=== PATIENT | male | born 1965 | race African-American/Black ===

== ENCOUNTER 2019-02-05 18:13 | Emergency (ER) | payer BC, OTHER ==
[~2019-02-05] VITALS: Ht 172.7 cm; Wt 70.8 kg
--- OUTSIDE RECORDS SUMMARY | 2019-02-05 18:18 | XMS REPORT ---
Author Author LEYDI ZAYAS Organization [facility] [address] Address [address] [place] [address] Care Team Providers Care Linux Unix System Administrator Name Role Phone LEYDI ZAYAS Unavailable PROBLEMS Unknown Problems ALLERGIES Substance Reaction Event Type Date Status Penicillin V Potassium Unknown Drug Allergy May, Active ENCOUNTERS Encounter Location Date Diagnosis [facility] [address] [place] [phone] May, Dental examination Z01.20 [facility] [address] [place] [phone] Apr, [address] [address] Sep, Dental examination Z01.[address] [address] Sep, [address] [address] May, Dental examination V72.2 IMMUNIZATIONS No Known Immunizations SOCIAL HISTORY Never Assessed REASON FOR VISIT ASHTYN PLAN OF CARE Activity Details Follow Up prn Reason:MARILUZ/Prophy VITAL SIGNS Blood pressure systolic 166 mmHg 2018-05-23 Blood pressure diastolic 99 mmHg 2018-05-23 MEDICATIONS Medication Instructions Dosage Frequency Start Date End Date Duration Status Magic Mouthwash Apply medicated swab to sore areas of the mouth to numb the pain As needed Dip cotton swab into medication Sep, As needed Not-Taking ProAir HFA Active Clindamycin HCl 300 MG Orally every 6 hrs 1 capsule 6h 10 days Active [place] 7.5-325 MG Orally every 6 hrs 1 tablet as needed 6h May, Active Clindamycin HCl 150 MG Orally every 6 hrs 2 capsules 6h May, 10 day(s) Not-Taking Hydrochlorothiazide Active RESULTS No Results PROCEDURES Procedure Date Ordered Result Body Site LTD ORAL EVALUATION - PROBLEM FOCUS May 23, 2018 INTRAORL-PERIAPICAL 1 FILM [id number] May 23, 2018 Billing Notes on claim May 23, 2018 EXTRAC ERUPTED TOOTH/EXPOSED ROOT May 23, 2018 INTRAORL-PERIAPICAL EA ADD FILM May 23, 2018 SURG REMOVAL ERUPTED TOOTH May 23, 2018 SURG REMOVAL ERUPTED TOOTH May 23, 2018 INSTRUCTIONS MEDICATIONS ADMINISTERED No Known Medications MEDICAL (GENERAL) HISTORY Type Description Date Medical History HBP Medical History Asthma Medical History Migraines
--- OUTSIDE RECORDS SUMMARY | 2019-02-05 18:18 | XMS REPORT ---
Author Author LEYDI ZAYAS Organization [facility] Address [address] [place] [address] Care Team Providers Care Sifter And Miller Name Role Phone ZAYASLEYDI SWEEENY Unavailable PROBLEMS Unknown Problems ALLERGIES Substance Reaction Event Type Date Status Penicillin V Potassium Unknown Drug Allergy Sep, Active ENCOUNTERS Encounter Location Date Diagnosis [facility] [address] [facility] [address] [id number] [place] [phone] Sep, Dental examination Z01.20 [facility] [address] [facility] [address] [id number] [place] [phone] Sep, [facility] [address] [facility] [address] [id number] [place] [phone] May, Dental examination V72.2 IMMUNIZATIONS No Known Immunizations SOCIAL HISTORY Never Assessed REASON FOR VISIT ASHTYN PLAN OF CARE Activity Details Follow Up prn Reason:MARILUZ/Prophy VITAL SIGNS Blood pressure systolic 133 mmHg 2017-10-11 Blood pressure diastolic 89 mmHg 2017-10-11 MEDICATIONS Medication Instructions Dosage Frequency Start Date End Date Duration Status Magic Mouthwash Apply medicated swab to sore areas of the mouth to numb the pain As needed Dip cotton swab into medication Sep, As needed Active Clindamycin HCl 300 MG Orally every 6 hrs 1 capsule 6h 10 days Active RESULTS No Results PROCEDURES Procedure Date Ordered Result Body Site LTD ORAL EVALUATION - PROBLEM FOCUS Oct 11, 2017 INTRAORL-PERIAPICAL 1 FILM [id number] Oct 11, 2017 EXTRAC ERUPTED TOOTH/EXPOSED ROOT Oct 11, 2017 PANORAMIC FILM SEE ALSO CODE [id number] Oct 11, 2017 INSTRUCTIONS MEDICATIONS ADMINISTERED No Known Medications MEDICAL (GENERAL) HISTORY Type Description Date Medical History HBP
--- OUTSIDE RECORDS SUMMARY | 2019-02-05 18:18 | XMS REPORT ---
Author Author LEYDI ZAYAS [facility] Address [address] [place] [address] Care Team Providers Care Head Of Sales Name Role Phone LEYDI ZAYAS Unavailable PROBLEMS Unknown Problems ALLERGIES No Information ENCOUNTERS Encounter Location Date Diagnosis [facility] [address] [place] [address] C [id number] [place] [phone] Sep, Dental examination Z01.20 [facility] [address] [place] [address] C [id number] [place] [phone] Sep, [address] [id number] [place] [phone] May, Dental examination V72.2 IMMUNIZATIONS No Known Immunizations SOCIAL HISTORY Never Assessed REASON FOR VISIT PLAN OF CARE VITAL SIGNS MEDICATIONS Medication Instructions Dosage Frequency Start Date End Date Duration Status Magic Mouthwash Apply medicated swab to sore areas of the mouth to numb the pain As needed Dip cotton swab into medication Sep, As needed Active Clindamycin HCl 300 MG Orally every 6 hrs 1 capsule 6h 10 days Active RESULTS No Results PROCEDURES No Known procedures INSTRUCTIONS MEDICATIONS ADMINISTERED No Known Medications MEDICAL (GENERAL) HISTORY Type Description Date Medical History HBP
--- OUTSIDE RECORDS SUMMARY | 2019-02-05 18:18 | XMS REPORT ---
Author Author LEYDI ZAYAS Organization [facility] [address] Address [address] [place] [address] Care Team Providers Care Plunket Nurse Name Role Phone LEYDI ZAYAS Unavailable PROBLEMS Unknown Problems ALLERGIES No Information ENCOUNTERS Encounter Location Date Diagnosis [facility] [address] [place] [address] May, Dental examination Z01.20 [facility] [address] [place] [phone] Apr, [address] [address] Sep, Dental examination Z01.[address] [address] Sep, [address] [address] May, Dental examination V72.2 IMMUNIZATIONS No Known Immunizations SOCIAL HISTORY Never Assessed REASON FOR VISIT PLAN OF CARE VITAL SIGNS MEDICATIONS Medication Instructions Dosage Frequency Start Date End Date Duration Status Clindamycin HCl 150 MG Orally every 6 hrs 2 capsules 6h May, 10 day(s) Active RESULTS No Results PROCEDURES No Known procedures INSTRUCTIONS MEDICATIONS ADMINISTERED No Known Medications MEDICAL (GENERAL) HISTORY Type Description Date Medical History HBP Medical History Asthma Medical History Migraines
--- OUTSIDE RECORDS SUMMARY | 2019-02-05 18:19 | XMS REPORT | Continuity of Care Document ---
Author Organization Unknown Address Unknown Allergies There is no data. Medications There is no data. Problems Date Dx Coded Attending Type Code Diagnosis Diagnosed By 11/03/2014 ADAN HERNANDEZ MD (DDU) Ot 401.9 11/03/2014 ADAN HERNANDEZ MD (GEETHA) Ot 492.8 11/03/2014 ADAN HERNANDEZ MD (GEETHA) Ot 493.90 11/03/2014 ADAN HERNANDEZ MD (GEETHA) Ot 722.52 Procedures There is no data. Results There is no data. Encounters ACCT No. Visit Date/Time Discharge Status Pt. Type Provider Facility Loc./Unit Complaint [id number] 02/05/2019 16:00:00 ACT Outpatient [facility] [id number] 10/29/2014 12:47:00 10/29/2014 23:59:59 CLS Outpatient ADAN HERNANDEZ MD (DDU) [facility] RAD [id number] 02/05/2019 18:15:00 ACT Emergency MOSHE GUTIÉRREZ MD [facility] ER FS ASTHMA RELATED RESTRICTED BREATHING
[2019-02-05] MEDS ORDERED: RT-ALBUTEROL/IPRATROPIUM 3 ML (DUONEB) VIAL ONE (18:23)
[2019-02-05] MEDS ORDERED: RT-ALBUTEROL/IPRATROPIUM 3 ML (DUONEB) VIAL INH ONE (18:30)
--- NOTE | 2019-02-05 18:44 | ED Respiratory ---
General Chief Complaint: Respiratory Problems Stated Complaint: ASTHMA RELATED RESTRICTED BREATHING Nursing Triage Note: went to urgent care an hour ago for asthma and got a breathing treatment. Breathing is not getting better so came to ED for eval. Is short of breath at rest. Source: patient, family History of Present Illness Date Seen by Provider: Feb 05, 2019 Time Seen by Provider: 18:20 Initial Comments 54-year-old male presenting with increased shortness of breath and wheezing. He has a history of asthma but due to changes in the clinic management recently he has not gotten in with a new provider yet. He has not had any Flovent for almost a month. He has been using per where her albuterol inhaler 4-5 times a day here recently. He has been outside a lot recently and there has been a lot of pollen and increased allergens in the air. He has been to urgent care this evening and had a breathing treatment. From there the also gave him a prescription for steroids and the Flovent. He had picked that up from the pharmacy and then went home. However his breathing, worse again and so he came to the emergency department. Here he was having difficulty breathing and very short of breath with speaking only a couple word sentences. He denies having any fever or chills. He has not been feeling ill. He feels that this is similar to his flareups of asthma but he has had in the past. Timing/Duration: other (last few days but worsening) Severity: moderate (moderate to severe) Prior Episodes/Possible Cause: allergen exposure Modifying Factors: Worse With Activity; Improves With Albuterol Inhaler, Improves With Albuterol Nebulizer Associated Symptoms: No chest pain/soreness; cough; No dizziness, No earache, No facial pain, No fever/chills, No headache, No nasal congestion, No nasal drainage; shortness of breath; No sinus infection, No sore throat; wheezing Allergies and Home Medications Allergies Coded Allergies: Penicillins (Verified Allergy, Unknown, 02/05/19) shellfish derived (Verified Allergy, Unknown, 02/05/19) Patient Home Medication List Home Medication List Reviewed: Yes Review of Systems Review of Systems Constitutional: see HPI; No diaphoresis EENTM: No ear discharge, No ear pain, No hoarseness, No epistaxis, No nose congestion, No throat pain Respiratory: see HPI, cough; No hemoptysis; short of breath; No stridor; wheezing Cardiovascular: No chest pain Gastrointestinal: no symptoms reported Genitourinary: no symptoms reported Musculoskeletal: no symptoms reported Skin: no symptoms reported Past Axyvpxr-Uksgdi-Jysqgs Hx Past Med/Social Hx: Reviewed Nursing Past Med/Soc Hx Patient Social History Recent Foreign Travel: No Contact w/Someone Who Travel: No Recent Infectious Disease Expo: No Seasonal Allergies Seasonal Allergies: Yes Past Medical History Respiratory: Yes Asthma Physical Exam Vital Signs - First Documented 02/05/19 02/05/19 18:21 20:19 Temp 96.6 Pulse 95 Resp 22 B/P (MAP) 165/95 (118) Pulse Ox 95 O2 Delivery Room Air Capillary Refill : Less Than 3 Seconds Height: 5'8.00" Weight: 156lbs. oz. 70.987912dn; BMI Method:Stated General Appearance: WD/WN, moderate distress (working hard to breath) HEENT: PERRL/EOMI, pharynx normal Neck: non-tender, full range of motion, supple, normal inspection Respiratory: chest non-tender, no respiratory distress, decreased breath sounds ; No rales, No rhonchi, No stridor; wheezing Cardiovascular: normal peripheral pulses, regular rate, rhythm Gastrointestinal: normal bowel sounds, non tender, soft Neurologic/Psychiatric: alert, normal mood/affect, oriented x 3 Skin: normal color, warm/dry Progress/Results/Core Measures Suspected Sepsis Recent Fever Within 48 Hours: No Infection Criteria Present: None New/Unexplained Altered Menta: No Sepsis Screen: No Definite Risk SIRS Temperature:96.6 Pulse: 95 Respiratory Rate: 22 Blood Pressure 165 /95 Mean: 118 Results/Orders My Orders Orders - MOSHE GUTIÉRREZ MD Albuterol/Ipra Inhalation Soln (Duoneb I (02/05/19 18:30) Svn Small Volume Nebulizer (02/05/19 18:25) Albuterol/Ipra Inhalation Soln (Duoneb I (02/05/19 18:23) Dexamethasone Injection (Decadron Inject (02/05/19 18:45) Methylprednisolone Acetate Inj (Depo-Med (02/05/19 18:45) Chest Pa/Lat (2 View) (02/05/19 18:37) Medications Given in ED Current Medications Medications Dose Ordered Sig/Doug Route Start Time Stop Time Status Last Admin Dose Admin Albuterol/ Ipratropium 3 ml ONCE ONCE INH 02/05/19 18:30 02/05/19 18:31 DC 02/05/19 18:28 3 ML Dexamethasone Sodium Phosphate 10 mg ONCE ONCE IM 02/05/19 18:45 02/05/19 18:46 DC 02/05/19 18:51 10 MG Methylprednisolone Acetate 80 mg ONCE ONCE IM 02/05/19 18:45 02/05/19 18:46 DC 02/05/19 18:51 80 MG Vital Signs/I&O 02/05/19 02/05/19 18:21 20:19 Temp 96.6 97.6 Pulse 95 89 Resp 22 16 B/P (MAP) 165/95 (118) 148/97 (114) Pulse Ox 95 96 O2 Delivery Room Air Capillary Refill : Less Than 3 Seconds Blood Pressure Mean: 118 Progress Note #1: Time: 18:25 Progress Note give breathing treatment with duoneb and obtain CXR. Add in steroids with dexamethasone 10 mg IM and depo-medrol 80 mg IM. Will see how he is responding to this in the ED but he may need additional treatments or if he worsens or is not improving he may even need admit. Progress Note #2: Time: 19:45 Progress Note On recheck he is improved and airways are staying opened. Will discharge to home on meds he has prescribed already. Counseled on follow up and return precautions. Diagnostic Imaging Diagonstic Imaging: Xray Plain Films/CT/US/NM/MRI: chest Comments NAME: [facility] REC#: [id number] PT STATUS: REG ER : 1965 PHYSICIAN: MOSHE GUTIÉRREZ MD ADMIT DATE: 02/05/19/ER FS Signed Date of Exam:02/05/19 CHEST PA/LAT (2 VIEW) INDICATION: Wheezing and shortness of breath. PA and lateral views of the chest were obtained. FINDINGS: The heart size, mediastinal configuration, and pulmonary vascularity are within normal limits. There is no pleural effusion, pneumothorax, or pneumonia. The osseous structures are unremarkable. IMPRESSION: No acute cardiopulmonary abnormality. Dictated by: Dictated on workstation # [id number] Dict: 02/05/191901 Trans: 02/05/191911 [id number] Interpreted by: HAKEEM LIRIANO MD Electronically signed by: HAKEEM LIRIANO MD 02/05/191911 Reviewed: Reviewed by Me (and reviewed radiology reading) Departure Impression Primary Impression: Asthma with acute exacerbation in adult Qualified Codes: J45.41 - Moderate persistent asthma with (acute) exacerbation Disposition: 01 HOME, SELF-CARE Condition: Improved Departure-Patient Inst. Decision time for Depature: 20:08 Referrals: DALE CUEVA MD Patient Instructions: Asthma, Adult (DC), Rescue vs Controller Inhalers, Inhaled Corticosteroid Medicines Add. Discharge Instructions: Continue on your inhalers at home. Follow up with Dr. Cueva or provider in clinic within the next week Return or be seen sooner if you have worsening symptoms or not improving in the next 2-3 days All discharge instructions reviewed with patient and/or family. Voiced understanding. MOSHE GUTIÉRREZ MD Feb 05, 2019 18:44
[2019-02-05] MEDS ORDERED: DEXAMETHASONE 10 MG/ML (DECADRON) 1 ML VIAL IM ONE (18:45)
[2019-02-05] MEDS ORDERED: methylPREDNISolone 80 MG/ML (DEPO MEDROL) VIAL IM ONE (18:45)
--- NOTE | 2019-02-05 19:04 | Diagnostic Imaging Report ---
INDICATION: Wheezing and shortness of breath. PA and lateral views of the chest were obtained. FINDINGS: The heart size, mediastinal configuration, and pulmonary vascularity are within normal limits. There is no pleural effusion, pneumothorax, or pneumonia. The osseous structures are unremarkable. IMPRESSION: No acute cardiopulmonary abnormality. Dictated by: Dictated on workstation # [id number]
--- NOTE | 2019-02-05 19:51 | NUR ---
PT. REPORTED HE WAS BREATHING A LOT EASIER AND IS ANXIOUS TO GO HOME.
[2019-02-05 20:19] VITALS: BP 148/97
== END 2019-02-05 20:15 | disposition home or self-care (01) ==
LOC: EDUNIT# 18:13 → ER FS 18:15
DX: J45.901 Unspecified asthma with (acute) exacerbation (principal); Z88.0 Allergy status to penicillin
CPT/HCPCS: 71046

== ENCOUNTER 2019-12-06 17:01 | Emergency (ER) | payer BC ==
[~2019-12-06] VITALS: Ht 170 cm; Wt 68.1 kg
[2019-12-06 17:20] VITALS: BP 124/81
--- NOTE | 2019-12-06 17:20 | NUR ---
Brought to ED 6 per Nurses Tech and placed in ED 06. Pt hx obtained. Pt made aware of busy ER and Dr will be made aware he is in room and also in could be awhile till he can assess him as he is busy with an emergency needing transfered.
--- NOTE | 2019-12-06 18:00 | NUR ---
Pt walks past staff in hallway and nurses station and calling out loud in shaw "I am leaving to go to a real hospital where a Dr will come and see me." Dr De La Torre enters hallway and patient made aware he is next but pt decides to not stop, not sign out left without being seen. Refused when approached.
== END 2019-12-06 18:00 | disposition left against medical advice (07) ==
LOC: EDUNIT# 17:01 → ER FS 17:02
DX: M79.601 Pain in right arm (principal)

== ENCOUNTER 2019-12-31 10:11 | Emergency (ER) | payer BC ==
[~2019-12-31] VITALS: Ht 172 cm; Wt 70.7 kg
[2019-12-31] MEDS ORDERED: LACTATED RINGERS 1,000 ML IV STA (10:41)
[2019-12-31] MEDS ORDERED: ONDANSETRON 4 MG/2 ML (SDV) Z0FRAN IVP ONE (10:45)
--- NOTE | 2019-12-31 10:48 | ED General ---
General Chief Complaint: Dizziness/Syncope Stated Complaint: N/V;FAINTING Nursing Triage Note: PT COMPLAINS OF DIZZINESS, SYNCOPE, N/V/D STARTING YESTERDAY. Nursing Sepsis Screen: No Definite Risk Source of Information: Patient Exam Limitations: No Limitations History of Present Illness Date Seen by Provider: Dec 31, 2019 Time Seen by Provider: 10:31 Initial Comments Here with report of 2 episodes of syncope including one last night which she wanted to the bathroom to vomit and apparently passed out. Denies injury from that episode. Also had an episode this morning associated with vomiting. States that he is vomiting clear yellow liquid. Denies blood. Denies chest pain. Does have mild intermittent cough. Denies breathing problems but does have history of asthma. Reports chills but unsure about fevers. Timing/Duration: 12-24 Hours Severity: Moderate Associated Systoms: No Chest Pain; Cough, Fever/Chills; No Headaches; Nausea/Vomiting; No Shortness of Air; Syncope, Weakness Allergies and Home Medications Allergies Coded Allergies: Penicillins (Verified Allergy, Unknown, 02/05/19) shellfish derived (Verified Allergy, Unknown, 02/05/19) Patient Home Medication List Home Medication List Reviewed: Yes Review of Systems Review of Systems Constitutional: see HPI, chills; No fever EENTM: no symptoms reported Respiratory: cough; No short of breath Cardiovascular: no symptoms reported Gastrointestinal: abdominal pain, nausea, vomiting Genitourinary: no symptoms reported Musculoskeletal: no symptoms reported Skin: no symptoms reported Psychiatric/Neurological: See HPI; Denies Headache, Denies Seizure Hematologic/Lymphatic: No Symptoms Reported All Other Systems Reviewed Negative Unless Noted: Yes Past Hagdgwa-Ywbpnz-Tznhvw Hx Past Med/Social Hx: Reviewed Nursing Past Med/Soc Hx Patient Social History Alcohol Use: Occasionally Uses Alcohol Beverage of Choice: Beer, Other Recreational Drug Use: No Smoking Status: Current Someday Smoker Type Used: Cigarettes 2nd Hand Smoke Exposure: No Recent Foreign Travel: No Contact w/Someone Who Travel: No Recent Infectious Disease Expo: No Recent Hopitalizations: No Seasonal Allergies Seasonal Allergies: Yes Past Medical History Surgeries: Yes (R middle finger/amputation, R ankle) Orthopedic Respiratory: Yes Asthma Cardiac: Yes Hypertension Neurological: Yes Headaches /Migraines Genitourinary: No Gastrointestinal: No Musculoskeletal: No Endocrine: No HEENT: No Cancer: No Psychosocial: No Blood Disorders: No Family Medical History Reviewed Nursing Family Hx Physical Exam Vital Signs Vital Signs - First Documented 12/31/19 10:15 Temp 36.9 Pulse 111 Resp 16 B/P (MAP) 142/110 (121) Pulse Ox 97 O2 Delivery Room Air Capillary Refill : Less Than 3 Seconds Height, Weight, BMI Height: 5'8.00" Weight: 156lbs. oz. 70.183787hi; 23.00 BMI Method:Stated General Appearance: No Apparent Distress, WD/WN HEENT: PERRL/EOMI, TMs Normal, Pharynx Normal Neck: Non Tender, Supple Respiratory: No Accessory Muscle Use, No Respiratory Distress, Expiration, Wheezing Cardiovascular: No Murmur, Tachycardia Gastrointestinal: Non Tender, Soft Back: Normal Inspection, No CVA Tenderness, No Vertebral Tenderness Extremity: Normal Range of Motion, Non Tender Neurologic/Psychiatric: Alert, Oriented x3 Skin: Normal Color, Warm/Dry Progress/Results/Core Measures Suspected Sepsis Recent Fever Within 48 Hours: No Infection Criteria Present: Suspected New Infection New/Unexplained Altered Menta: No Sepsis Screen: No Definite Risk SIRS Temperature: Pulse: 111 Respiratory Rate: 16 Laboratory Tests 12/31/19 10:30: White Blood Count 9.2 Blood Pressure 142 /110 Mean: 121 Laboratory Tests 12/31/19 10:30: Creatinine 1.01, Platelet Count 210, Total Bilirubin 0.6 Results/Orders Lab Results Laboratory Tests Test 12/31/19 10:30 12/31/19 11:28 Range/Units White Blood Count 9.2 4.3-11.0 10^3/uL Red Blood Count 3.48 L 4.35-5.85 10^6/uL Hemoglobin 11.0 L 13.3-17.7 G/DL Hematocrit 33 L 40-54 % Mean Corpuscular Volume 93 80-99 FL Mean Corpuscular Hemoglobin 32 25-34 PG Mean Corpuscular Hemoglobin Concent 34 32-36 G/DL Red Cell Distribution Width 12.3 10.0-14.5 % Platelet Count 210 130-400 10^3/uL Mean Platelet Volume 10.8 H 7.4-10.4 FL Neutrophils (%) (Auto) 64 42-75 % Lymphocytes (%) (Auto) 16 12-44 % Monocytes (%) (Auto) 13 H 0-12 % Eosinophils (%) (Auto) 6 0-10 % Basophils (%) (Auto) 1 0-10 % Neutrophils # (Auto) 5.9 1.8-7.8 X 10^3 Lymphocytes # (Auto) 1.5 1.0-4.0 X 10^3 Monocytes # (Auto) 1.2 H 0.0-1.0 X 10^3 Eosinophils # (Auto) 0.6 H 0.0-0.3 10^3/uL Basophils # (Auto) 0.1 0.0-0.1 10^3/uL Sodium Level 136 135-145 MMOL/L Potassium Level 3.5 L 3.6-5.0 MMOL/L Chloride Level 96 L 98-107 MMOL/L Carbon Dioxide Level 32 21-32 MMOL/L Anion Gap 8 5-14 MMOL/L Blood Urea Nitrogen 24 H 7-18 MG/DL Creatinine 1.01 0.60-1.30 MG/DL Estimat Glomerular Filtration Rate > 60 BUN/Creatinine Ratio 24 Glucose Level 105 70-105 MG/DL Calcium Level 9.5 8.5-10.1 MG/DL Corrected Calcium 8.5-10.1 MG/DL Magnesium Level 1.9 1.6-2.4 MG/DL Total Bilirubin 0.6 0.1-1.0 MG/DL Aspartate Amino Transf (AST/SGOT) 28 5-34 U/L Alanine Aminotransferase (ALT/SGPT) 20 0-55 U/L Alkaline Phosphatase 52 40-136 U/L Troponin I < 0.028 <0.028 NG/ML C-Reactive Protein High Sensitivity 0.20 0.00-0.50 MG/DL Total Protein 7.3 6.4-8.2 GM/DL Albumin 4.6 H 3.2-4.5 GM/DL Urine Color YELLOW Urine Clarity CLEAR Urine pH 7.5 5-9 Urine Specific [place] 1.010 L 1.016-1.022 Urine Protein NEGATIVE NEGATIVE Urine Glucose (UA) NEGATIVE NEGATIVE Urine Ketones 1+ H NEGATIVE Urine Nitrite NEGATIVE NEGATIVE Urine Bilirubin NEGATIVE NEGATIVE Urine Urobilinogen 1.0 < = 1.0 MG/DL Urine Leukocyte Esterase NEGATIVE NEGATIVE Urine RBC (Auto) NEGATIVE NEGATIVE Urine RBC NONE /HPF Urine WBC RARE /HPF Urine Squamous Epithelial Cells NONE /HPF Urine Crystals NONE /LPF Urine Bacteria NEGATIVE /HPF Urine Casts NONE /LPF Urine Mucus NEGATIVE /LPF Urine Culture Indicated NO My Orders Orders - MARILIN,LIYA D MD Cbc With Automated Diff (12/31/19 10:41) Comprehensive Metabolic Panel (12/31/19 10:41) Hs C Reactive Protein (12/31/19 10:41) Magnesium (12/31/19 10:41) Troponin I (12/31/19 10:41) Ua Culture If Indicated (12/31/19 10:41) Chest 1 View, Ap/Pa Only (12/31/19 10:41) Ondansetron Injection (Zofran Injectio (12/31/19 10:45) Lactated Ringers (Lr 1000 Ml Iv Solution (12/31/19 10:41) Ed Iv/Invasive Line Start (12/31/19 10:41) Ct Head Wo (12/31/19 10:41) Medications Given in ED Current Medications Medications Dose Ordered Sig/Doug Route Start Time Stop Time Status Last Admin Dose Admin Ondansetron HCl 4 mg ONCE ONCE IVP 12/31/19 10:45 12/31/19 10:46 DC 12/31/19 10:50 4 MG Vital Signs/I&O 12/31/19 10:15 Temp 36.9 Pulse 111 Resp 16 B/P (MAP) 142/110 (121) Pulse Ox 97 O2 Delivery Room Air Capillary Refill : Less Than 3 Seconds Blood Pressure Mean: 121 Progress Note : Progress Note Seen and evaluated. IV, labs, EKG, chest x-ray and CT head ordered. LR 1 L bolus. Zofran 4 mg IV. Monitor patient. 1239: Tolerating by mouth fluids without difficulty and states he feels much better. We will initiate outpatient ondansetron. Discharged home with return precautions. Patient verbalize understanding instructions and agreement with plan. Family agrees. ECG Initial ECG Impression Date: Dec 31, 2019 Initial ECG Impression Time: 10:31 Initial ECG Rate: 108 Initial ECG Rhythm: S.Tach Comment Sinus tachycardia with left ventricular hypertrophy. EKG questions diffuse ST e levation in the inferior lateral leads. There is some wondering of the baseline although a consideration. No evidence of ST elevation FL. No previous available for comparison. Interpreted by me. Diagnostic Imaging Diagonstic Imaging: CT Plain Films/CT/US/NM/MRI: head Comments [facility] [place], [place] NAME: MARK WALL [facility] REC#: [id number] PT STATUS: REG ER : 1965 PHYSICIAN: LIYA GASTON MD ADMIT DATE: 12/31/19/ER Draft Date of Exam:12/31/19 CT HEAD WO PROCEDURE: CT head without contrast. TECHNIQUE: Multiple contiguous axial images were obtained through the brain without the use of intravenous contrast. Auto Exposure Controls were utilized during the CT exam to meet ALARA standards for radiation dose reduction. INDICATION: Syncope. COMPARISON: No prior studies are available for comparison. FINDINGS: The ventricles and sulci are within normal limits. No sulcal effacement or midline shift is identified. No acute intra-axial or extra-axial hemorrhage is detected. Cisterns are patent. Visualized paranasal sinuses are clear. IMPRESSION: No acute intracranial process is detected. Dictated on workstation # [id number] Dict: 12/31/19 1102 Trans: 12/31/19 1103 B [id number] Interpreted by: SILVINO HERNANDEZ MD Electronically signed by: Amirah Imaging: Xray Plain Films/CT/US/NM/MRI: chest Comments [facility], [place] NAME: MARK WALL [facility] REC#: [id number] PT STATUS: REG ER : 1965 PHYSICIAN: LIYA GASTON MD ADMIT DATE: 12/31/19/ER Draft Date of Exam:12/31/19 CHEST 1 VIEW, AP/PA ONLY INDICATION: Dizziness, syncope, nausea, vomiting and diarrhea starting one day earlier.. TECHNIQUE: Single view chest 11:08 AM. CORRELATION STUDY: 02/05/2019 FINDINGS: The heart size, mediastinal configuration and pulmonary vascularity are within normal limits. The lungs are clear with no consolidating infiltrate. There is no significant effusion or pneumothorax. Very mild rightward curvature or rotation lower thoracic spine. IMPRESSION: 1. Negative for acute abnormality of the chest. Dictated on workstation # [id number] Dict: 12/31/19 1109 Trans: 12/31/19 1110 DO [id number] Interpreted by: ISH AUGUST DO Electronically signed by: Departure Impression Primary Impression: Nausea and vomiting Qualified Codes: R11.2 - Nausea with vomiting, unspecified Additional Impression: Syncope Qualified Codes: R55 - Syncope and collapse Disposition: 01 HOME, SELF-CARE Condition: Improved Departure-Patient Inst. Decision time for Depature: 12:40 Referrals: DALE RAMOS MD (PCP/Family) Primary Care Physician Patient Instructions: Nausea and Vomiting, Adult (DC), Syncope (Fainting) (DC) Add. Discharge Instructions: All discharge instructions reviewed with patient and/or family. Voiced understanding. Take medications as directed. Follow-up with your Dr. in one to 2 days for recheck and further evaluation as needed. Return for worse pain, fever, vomiting, weakness, breathing problems, passing out or other concerns as needed. Clear liquid diet for the next 24 hours and then advance as tolerated. Start with small sips frequently and then advance from there. Scripts Ondansetron (Ondansetron Odt) 4 Mg Tab.rapdis 4 MG PO Q6H PRN for NAUSEA/VOMITING, #8 TAB 0 Refills Prov: LIYA GASTON MD 12/31/19 LIYA GASTON MD Dec 31, 2019 10:48
[2019-12-31 10:50] LABS: BASOPHILS # (AUTO) 0.1 10^3/uL (0.0-0.1); BASOPHILS % (AUTO) 1 % (0-10); EOSINOPHILS # (AUTO) 0.6 10^3/uL (0.0-0.3); EOSINOPHILS % (AUTO) 6 % (0-10); HEMATOCRIT 33 % (40-54); LYMPHOCYTES # (AUTO) 1.5 X 10^3 (1.0-4.0); LYMPHOCYTES % (AUTO) 16 % (12-44); MEAN CORPUSCULAR HEMOGLOBIN 32 PG (25-34); MEAN CORPUSCULAR HGB CONC 34 G/DL (32-36); MEAN CORPUSCULAR VOLUME 93 FL (80-99); MEAN PLATELET VOLUME 10.8 FL (7.4-10.4); MONOCYTES # (AUTO) 1.2 X 10^3 (0.0-1.0); MONOCYTES % (AUTO) 13 % (0-12); NEUTROPHILS # (AUTO) 5.9 X 10^3 (1.8-7.8); NEUTROPHILS % (AUTO) 64 % (42-75); PLATELET COUNT 210 10^3/uL (130-400); RED CELL DISTRIBUTION WIDTH 12.3 % (10.0-14.5); WHITE BLOOD COUNT 9.2 10^3/uL (4.3-11.0)
[2019-12-31 11:02] LABS: ALANINE AMINOTRANSFERASE 20 U/L (0-55); ALBUMIN 4.6 GM/DL (3.2-4.5); ALKALINE PHOSPHATASE 52 U/L (40-136); BILIRUBIN,TOTAL 0.6 MG/DL (0.1-1.0); BUN/CREATININE RATIO 24; CALCIUM 9.5 MG/DL (8.5-10.1); CARBON DIOXIDE 32 MMOL/L (21-32); CHLORIDE 96 MMOL/L (98-107); CREATININE SERUM 1.01 MG/DL (0.60-1.30); GFR ESTIMATED > 60; GLUCOSE 105 MG/DL (70-105); MAGNESIUM 1.9 MG/DL (1.6-2.4); POTASSIUM 3.5 MMOL/L (3.6-5.0); SODIUM 136 MMOL/L (135-145); TOTAL PROTEIN 7.3 GM/DL (6.4-8.2)
--- NOTE | 2019-12-31 11:03 | Diagnostic Imaging Report ---
PROCEDURE: CT head without contrast. TECHNIQUE: Multiple contiguous axial images were obtained through the brain without the use of intravenous contrast. Auto Exposure Controls were utilized during the CT exam to meet ALARA standards for radiation dose reduction. INDICATION: Syncope. COMPARISON: No prior studies are available for comparison. FINDINGS: The ventricles and sulci are within normal limits. No sulcal effacement or midline shift is identified. No acute intra-axial or extra-axial hemorrhage is detected. Cisterns are patent. Visualized paranasal sinuses are clear. IMPRESSION: No acute intracranial process is detected. Dictated by: Dictated on workstation # [id number]
--- NOTE | 2019-12-31 11:10 | Diagnostic Imaging Report ---
INDICATION: Dizziness, syncope, nausea, vomiting and diarrhea starting one day earlier.. TECHNIQUE: Single view chest 11:08 AM. CORRELATION STUDY: 02/05/2019 FINDINGS: The heart size, mediastinal configuration and pulmonary vascularity are within normal limits. The lungs are clear with no consolidating infiltrate. There is no significant effusion or pneumothorax. Very mild rightward curvature or rotation lower thoracic spine. IMPRESSION: 1. Negative for acute abnormality of the chest. Dictated by: Dictated on workstation # [id number]
[2019-12-31 11:32] LABS: BILIRUBIN,URINE NEGATIVE (NEGATIVE); CLARITY,URINE CLEAR; COLOR,URINE YELLOW; GLUCOSE, URINE (UA) NEGATIVE (NEGATIVE); KETONES,URINE 1+ (NEGATIVE); LEUKOCYTE ESTERASE ,URINE NEGATIVE (NEGATIVE); NITRITE,URINE NEGATIVE (NEGATIVE); PH,URINE 7.5 (5-9); PROTEIN,URINE NEGATIVE (NEGATIVE)
[2019-12-31 11:49] LABS: BACTERIA,URINE NEGATIVE /HPF; WBC,URINE RARE /HPF
--- NOTE | 2019-12-31 12:10 | NUR ---
IN TALKING TO PT AT THIS TIME.
[2019-12-31] MEDS ORDERED: ONDA4TAB11 PO (12:42)
[2019-12-31 12:51] VITALS: BP 143/90
== END 2019-12-31 12:51 | disposition home or self-care (01) ==
LOC: EDUNIT# 10:11 → ER 10:13
DX: R55 Syncope and collapse (principal); R11.2 Nausea with vomiting, unspecified; F17.210 Nicotine dependence, cigarettes, uncomplicated; Z88.0 Allergy status to penicillin
CPT/HCPCS: 36415; 70450; 71045; 80053; 81000; 83735; 84484; 85025; 86141; 93005

== ENCOUNTER 2020-01-18 20:56 | Emergency (ER) | payer BC ==
[~2020-01-18] VITALS: Ht 172.7 cm; Wt 66.2 kg
[~2020-01-18 20:56] MED LIST: ONDA4TAB11 PO
--- OUTSIDE RECORDS SUMMARY | 2020-01-18 21:02 | XMS REPORT ---
Author Author [employer] Organization [employer] Address [address] [address] Care Team Providers Care Director Of Development Name Role Phone LEYDI ZAYAS Unavailable LEYDI ZAYAS Unavailable ZAYASLEYDI SWEENEY Unavailable LEYDI ZAYAS Unavailable SELFDALE PCP Dale Ramos Unavailable Unavailable MARLA CASANOVA, MOSHE Upton Unavailable Unavailable MELGARERIKA PAYAN DO Unavailable Unavailable LEISURE, BOBO Unavailable Unavailable TIM ROB Unavailable Unavailable TIM ROB Unavailable Unavailable SELF, DALE Castaneda Unavailable Unavailable SELF, MD HUNTER PCP LILIYA CASANOVA, ION Castaneda Unavailable Unavailable MARILIN CASANOVA, LIYA Smith Unavailable Unavailable DAVID (DDU), ADAN Reynoso Unavailable Unavailable Allergies Normalized Allergy Reported Date of Reaction(s) Care Provider Facility Allergy Type classification allergen Allergy Onset Drug Allergy penicillin v penicillin v 05-23-2018 - Unknown D RHETT [facility] (1 source.) Translations: [id number] [facility] [ Penicillin V of [place] Pot[place]] [place] ([id number]) Food Allergy Shellfish Shellfish 02-05-2019 - shellfish ADAN FREGOSO [facility] Via (13 sources.) Translations: derived (DDU) [place] [ shellfish ([id number]) Hospital - derived] [place] ([id number]) Medications Current Medications Medication Ingredient Drug Dose Dates Status Sig Sig Care Class(es) (Normalized) (Original) Provid er acetaminoph acetaminoph Opioid 05-23-20 Active no Orbisonia no en 325 mg / en / Agonist 18 information 7.5-325 MG n surendra HYDROcodone HYDROcodone Orally every (no bitartrate Translation 6 hrs 1 phone) 7.5 mg oral s: [ Orbisonia tablet as tablet (1 7.5-325 MG] needed 6h 03 source.) May, 2018 Active no albuterol beta2-Adren Active no ProAir HFA n o information ergic information Active name (1 source.) Agonist (no phone) no hydroCHLORO Thiazide Active no Hydrochlorot no information thiazide Diuretic information hiazide name (1 source.) Active (no phone) ondansetron Ondansetron Serotonin-3 12-31-19 Active no Ondan setron no 4 mg Receptor 20 information Active 4 name disintegrat Antagonist ORAL Every 6 (no ing oral Hours as phone) tablet (1 needed for source.) Nausea/Vomit ing December 31, 2019 12:42pm Completed/Discontinued Medications Medication Ingredient Drug Dose Dates Status Sig Sig Care Class(es) (Normalized) (Original) Provid er no KETOROLAC no 12-06-19 no no no no information VIAL INJ 60 information 20 - informat informati on information name (1 source.) MG/2CC 12-06-19 ion (no (TORADOL 20 phone) VIAL) Problems Problem Normalized Date of Normalized Normalized Provider Fac ility Classification Problem(s) Problem Problem Problem Sta tus Onset/Resoluti Duration on Allergic Allergy status 12-31-2019 - Episodic Active MOSHE TURNER RT , [facility] Via reactions (4 to penicillin MD Brown sources.) Hospital - [place] () Asthma (4 Asthma, 12-31-2019 - Chronic Active ADAN HERNANDEZ [facility] Via sources.) unspecified (DDU) [facility] ([id number] [ UNSPECIFIED ASTHMA WITH (ACUTE) EXACERBA] Spondylosis; Degeneration 12-31-2019 - Chronic Active ADAN ERWIN IS , [facility] Via intervertebral of lumbar or (DDU) [facility] disc lumbosacral Hospital - disorders; intervertebral [place] other back disc () problems (2 sources.) Nausea and Nausea with 01-05-2020 - Episodic Active LIYA [facility] Via vomiting (4 vomiting, MD Stephanie GASTON sources.) unspecified Hospital - [place] () Substance-rela Nicotine 01-05-2020 - Chronic Active LIYA [facility] Via elaine disorders dependenceMARILIN MD Christi (2 sources.) cigarettes, Hospital - uncomplicated [place] ([id number]) Chronic Other 12-31-2019 - Chronic Active ADAN HERNANDEZ [facility] Via obstructive emphysema (DDU) [facility] pulmonary Hospital - disease and [place] bronchiectasis ([id number]) (2 sources.) Other Pain in right 12-13-2019 - Episodic Active ERIKA FREE MAN [facility] Via connective arm , DO [facility] tissue [facility] - (6 sources.) [place] ([id number]) Phlebitis; Phlebitis and 12-06-2019 - Episodic Active [facility] thrombophlebit thrombophlebit LEISURE [facility] of is and is of [facility] ([id number]) m (8 sources.) vessels of unspecified lower extremity Translations: [ PHLEBITIS AND THROMBOPHLEBIT IS OF UNSPECIFIED SITE, PHLEBITIS AND THROMBOPHLEBIT IS OF OTHER SITES, PHLEBITIS AND THROMBOPHLEBIT IS OF OTHER SITES] Other lower Shortness of 12-31-2019 - Episodic Active MOSHE DESHPANDE [facility] Via respiratory breath [facility] (2 Hospital - sources.) [place] ([id number]) Syncope (2 Syncope and 01-05-2020 - Episodic Active LIYA [facility] Via sources.) collapse MD MARILIN [facility] ([id number]) Essential Unspecified 12-31-2019 - Chronic Active ADAN HERNANDEZ [facility] Via hypertension essential (DDU) [facility] (2 sources.) hypertension [facility] ([id number]) Procedures Procedure Normalized Procedure Procedure Result Performer Facility Date 05-23-2018 Billing Notes on claim no information no name (no p juan david) [facility] ([id number]) 12-31-2019 CT of head without no information no name (no phone ) [place] Via [facility] ([id number]) 12-31-2019 Electrocardiographic no information no name (no omkar ne) [place] Via [facility] ([id number]) 05-23-2018 Extraction erupted no information no name (no phone ) [facility] tooth/exr [facility] ([id number]) 05-23-2018 Intraoral periapical no information no name (no omkar ne) [facility] ea add [facility] ([id number]) 05-23-2018 Intraoral periapical no information no name (no omkar ne) [facility] ([id number]) 12-31-2019 Plain chest X-ray no information no name (no phone) [place] Via [facility] ([id number]) 08-03-2018 Rem imp tooth w no information no name (no phone) [facility] - mucoper flp [facility] 05-23-2018 [place] ([id number]) - 05-23-2018 Immunizations Normalized Immunization Date Notes Care Provider Facili ty Immunization influenza, seasonal, 09-16-2019 no information [facility] name [facility] ([id number]) pneumococcal 09-16-2019 no information no name [facility] polysaccharide [facility] vaccine, 23 valent - [facility] ([id number]) vaccine no information [facility] [address] [place] V ia Translations: [ [facility] vaccine] ([id number]) Results Test Name Value Interpretation Reference Range Date Time Fa cility (Normalized) (Normalized) (Medline Reference) venous blood hemoglobin measurement (mass/volume) on 2019-12-31 Hemoglobin (Bld) 11.0 g/dL (L) 12.1 - 17.2 g/dL 12-31-2019 [place] Via [Mass/Vol] 13:30-0400 [facility] ([id number]) blood monocytes/100 leukocytes on 2019-12-31 Monocytes/100 13 % (H) 2 - 8 % 12-31-2019 [facility] WBC (Bld) 13:30-0400 [facility] ([id number]) blood monocytes automated count (number/volume) on 2019-12-31 Monocytes (Bld) 1.2 10*3/uL (H) 0.3 - 0.9 12-31-2019 [facility] Via [#/Vol] 10*3/uL 13:30-0400 [facility] l ([id number]) blood hematocrit (volume fraction) on 2019-12-31 Hematocrit (Bld) 33 % (L) 36.1 - 50.3 % 12-31-2019 [facility] Via [Volume 13:30-0400 [facility] fraction] ([id number]) blood erythrocytes automated count (number/volume) on 2019-12-31 RBC (Bld) 3.48 10*6/uL (L) 4.2 - 6.1 12-31-2019 [place] Via [#/Vol] 10*6/uL 13:30-0400 [facility] l ([id number]) automated erythrocyte mean corpuscular volume (mcv) measurement on 2019-12-31 MCV (RBC) 93 fL (no code) 80 - 100 fL 12-31-2019 [place] Via [Entitic vol] 13:30-0400 [facility] ([id number]) automated erythrocyte mean corpuscular hemoglobin concentration measurement (mass/volume) on 2019-12-31 MCHC (RBC) 34 g/dL (no code) 32 - 36 g/dL 12-31-2019 [facility] [Mass/Vol] 13:30-0400 [facility] ([id number]) automated erythrocyte mean corpuscular hemoglobin (mass per erythrocyte) on 2019-12-31 MCH (RBC) 32 pg (no code) 27 - 31 pg 12-31-2019 [place] V ia [Entitic mass] 13:300400 [facility] ([id number]) automated erythrocyte distribution width ratio on 2019-12-31 Erythrocyte 12.3 % (no code) 11.6 - 14.6 % 12-31-2019 [facility] Via distribution 13:30 [facility] width (RBC) ([id number]) [Ratio] automated eosinophil count on 2019-12-31 Eosinophils 0.6 10*3/uL (H) 0.05 - 0.5 12-31-2019 [facility] Via (Bld) [#/Vol] 10*3[facility]L [id number] blood platelet mean volume measurement on 2019-12-31 Platelet mean 10.8 fL (H) 7.2 - 11.7 fL 12-31-2019 [facility] Via volume (Bld) 13:30040 [facility] [Entitic vol] ([id number]) automated blood platelet count (count/volume) on 2019-12-31 Platelets (Bld) 210 10*3/uL (no code) 150 - 450 12-31-2019 [facility] Via [#/Vol] 10*3/uL 13:30-0400 [facility] ([id number]) automated blood neutrophils/100 leukocytes on 2019-12-31 Neutrophils/100 64 % (no code) 40 - 60 % 12-31-2019 [facility] WBC (Bld) 13:300400 [facility] ([id number]) automated blood neutrophil count (number/volume) on 2019-12-31 Neutrophils 5.9 10*3/uL (no code) 1.7 - 7 10*3/uL 12-31-2019 [facility] Via (Bld) [#/Vol] 13:30 [facility] ([id number]) automated blood lymphocytes/100 leukocytes on 2019-12-31 Lymphocytes/100 16 % (no code) 20 - 40 % 12-31-2019 [facility] WBC (Bld) 13:30 [facility] ([id number]) automated blood lymphocyte count (number/volume) on 2019-12-31 Lymphocytes 1.5 10*3/uL (no code) 0.9 - 2.9 12-31-2019 [facility] Via (Bld) [#/Vol] 10*3/uL 13: [facility] al ([id number]) automated blood leukocyte count (number/volume) on 2019-12-31 WBC (Bld) 9.2 10*3/uL (no code) 3.5 - 10.5 12-31-2019 [place] Via [#/Vol] 10*3/uL 13:30 [facility] l ([id number]) automated blood eosinophils/100 leukocytes on 2019-12-31 Eosinophils/100 6 % (no code) 1 - 4 % 12-31-2019 [facility] WBC (Bld) 13: [facility] () automated blood basophils/100 leukocytes on 2019-12-31 Basophils/100 1 % (no code) 0.5 - 1 % 12-31-2019 [facility] WBC (Bld) 13: [facility] ([id number]) automated blood basophil count (number/volume) on 2019-12-31 Basophils (Bld) 0.1 10*3/uL (no code) 0 - 0.3 10*3/uL 12-31-2019 [place] Via [#/Vol] 13: [facility] ([id number]) Vital Signs The data below is from unstructured sources Blood pressure systolic 133 mmHg 2017-10-11 Blood pressure diastolic 89 mmHg 2017-10-11 Blood pressure systolic 166 mmHg 2018-05-23 Blood pressure diastolic 99 mmHg 2018-05-23 Vital Response Date/Time Temperature (Fahrenheit) 97.6 degree s F (97.6 - 99.5) 02/05/2019 8:19pm Temperature (Calculated Celsius) 36. 31681 degrees C (36.4 - 37.5) 02/05/2019 8:19pm Temperature Source Tympanic 02/05/2019 8:19pm Pulse Rate (adult) 89 bpm (60 - 90) 02/05/2019 8:19pm Respiratory Rate 16 bpm (12 - 24) 02/05/2019 8:19pm O2 Sat by Pulse Oximetry 96 % (88 - 100) 02/05/2019 8:19pm Blood Pressure 148/97 mm Hg 02/05/2019 8:19pm Blood Pressure Mean 114 mm Hg (65 - 110) 02/05/2019 8:19pm Pain Numeric Pain Scale 0-No Pain 02/05/2019 8:19pm Height (Feet) 5 feet 6:21pm Height (Inches) 8.00 inches 02/05/2019 6:21pm Height (Calculated Centimeters) 172. 327915 cm 02/05/2019 6:21pm Height Method Stated 6:21pm Weight (Pounds) 156 pounds 02/05/2019 6:21pm Weight (Calculated Grams) 58648.41 gm 02/05/2019 6:21pm Weight (Calculated Kilograms) 70.760 410 kilograms 02/05/2019 6:21pm Weight Method Stated 6:21pm Capillary Refill Capillary Refill Less Than 3 Seconds 02/05/2019 6:21pm Height 5 ft 8 in 019 6:21pm Weight 156 lb 02/05/2019 6:21pm Body Mass Index 23.7 kg/m^2 02/05/2019 6:21pm Vital Reading Result Col lection Date/Time Vital Reading Result Col lection Date/Time Interventions No Information Plan of Treatment Normalized Care Care Detail Care Activity Date Care Provider F acility Activity Patient Education no information no information MD HUNTER SELF [place] [facility] [address] [place] [address] ([id number]) Patient referral no information no information MD HUNTER SELF [place] [facility] [address] [place] [address] ([id number]) Goals Patient Goal Desired Goal no information no information Social History Normalized Code Original Code Date Value Tobacco smoking status Tobacco smoking status no information Current some day smoker [facility] no information no information 12-31-2019 Occasionally Us es no information no information 12-31-2019 No no information no information 12-31-2019 Current Someday Smoker no information no information 12-06-2019 Cigarettes Sex Assigned At Sex Assigned At no information M mitchell Functional Status The data below is from unstructured sourcesNo functional status information available.No Functional Status information availableNo Functional Status information available Mental Status The data below is from unstructured sourcesNo Mental Status Information Available Encounters Encounter Normalized Encounter Encounter Diagnosis Care Provi roscoe Organization Date Type 05-23-2018 (D-PAIN/ASHTYN) Pain/ASHTYN Encounter for dental LEYDI SAM SOLARES (no [facility] [address] (no - examination and phone) phone) 05-23-2018 cleaning without - abnormal findings 05-23-2018 12-31-2019 Emergency department no information (no phone) [facility] [place] - patient visit Hospital (no phone) 12-31-2019 12-31-2019 Emergency department no information ION LOVELL MD (no [facility] [place] - patient visit phone) LIYA Smith [facility] 12-31-2019 MARILIN CASANOVA (no phone) (no phone) 12-06-2019 Emergency department no information (no phone) [facility] [place] - patient visit Hospital (no phone) 12-06-2019 12-06-2019 Emergency department no information ERIKA MELGAR DO (no [facility] [place] - patient visit phone) [facility] 12-06-2019 (no phone) 02-05-2019 Emergency department no information MOSHE goldsmith no organization name - patient visit (no phone ) 02-05-2019 02-05-2019 Emergency department no information MOSHE Smith (no [facility] [place] - patient visit phone) [facility] 02-05-2019 (no phone) 05-23-2018 Limit oral eval problm no information no name (no p juan david) no organization name focus (no phone) 05-23-2018 Patient encounter no information no name (no phone) no organization name (no phone) 12-31-2019 Patient encounter no information LIYA GASTON MD [facility] [place] procedure (no phone) [facility] (no phone) 12-08-2019 Patient encounter no information DALE RAMOS (no [facility] phone) [facility] (no phone) 12-06-2019 Patient encounter no information ERIKA MELGAR DO (no [facility] [place] procedure phone) [facility] (no phone) 12-06-2019 Patient encounter no information Tim Rob (no omkar ne) [facility] - procedure LYNSYLVIAA LEISURE (no of [facility] (no 12-06-2019 phone) LYNIETA LEISURE phone) (no phone) 02-13-2019 Patient encounter no information no name (no phone) no organization name procedure (no phone) 02-05-2019 Patient encounter no information no name (no phone) no organization name procedure (no phone) 10-29-2014 Patient encounter no information no name (no phone) no organization name procedure (no phone) 10-29-2014 Patient encounter no information ADAN HERNANDEZ (DDU) (no [facility] [place] procedure phone) [facility] (no phone) 05-19-2018 Telephone encounter no information LEYDI ZAYAS ( no [facility] [address] (no - phone) phone) 05-19-2018 - 05-19-2018 no information Encounter for dental no name (no phone) no or ganization name examination and (no phone) cleaning without abnormal findings no information Dental examination no name (no phone) no orga nization name (no phone) Medical Equipment The data below is from unstructured sourcesNo Medical Equipment Information available Payers Normalized Payer Value [facility] [id number]) [facility] no information Evaluation note Note Type Note Facility Evaluation No Assessments Information Available A [facility] note [facility] ([id number]) Advance Directives Directive Response Recor ded Date/Time Advance Directives No 6:21pm Resuscitation Status Full Code 02/05/19 6:21pm Advance Directive Response Recorded Date/Time Advance Directives No Elinor [facility] 2019 10:23am Health Care Power of Grain Unloader Machine No December 06, 2019 5:20pm Organ Donor No December 06, 2019 5:20pm Resuscitation Status Full Code December 31, 2019 10:23am Chief Complaint and Reason for Visit Chief Complaint Respiratory Problems Reason for Visit Asthma with acute e xacerbation in adult Chief Complaint Dizziness/Syncope Reason for Visit [id number] Discharge Instructions No hospital discharge instruction information available. Additional Source Comments This clinical document has been generated using [employer] software that has been certified by the Office of the National Coordinator for Health Information Technology (ONC 15.99.04.3023.Diam.31.00.0.770197) and the National Committee for [employer] (NCQA, as an eMeasure certified technology). FOR RECORDS PERTAINING TO PATIENTS WHO ARE OR HAVE BEEN ENROLLED IN A CHEMICAL D EPENDENCY/SUBSTANCE ABUSE PROGRAM, SOME INFORMATION MAY BE OMITTED. This clinica l summary was aggregated from multiple sources. Caution should be exercised in using it in the provision of clinical care. This summary normalizes information from multiple sources, and as a consequence, information in this document may ma terially change the coding, format and clinical context of patient data. In keeley tion, data may be omitted in some cases. CLINICAL DECISIONS SHOULD BE BASED ON T HE PRIMARY CLINICAL RECORDS. [employer] provides no warranty or guara ntee of the accuracy or completeness of information in this document.The followi ng information is based on time limited clinical information UNRECOGNIZED CONTENT PROVIDED BELOW FOR UNRECOGNIZED SECTION MEDICAL (GENERAL) HISTORY Type Description Date Medical History HBP Type Description Date Medical History HBP Medical History Asthma Medical History Migraines UNRECOGNIZED CONTENT PROVIDED BELOW FOR UNRECOGNIZED SECTION REASON FOR VISIT ASHTYN
--- OUTSIDE RECORDS SUMMARY | 2020-01-18 21:02 | XMS REPORT | Continuity of Care Document ---
Author Organization Unknown Address Unknown Phone Unavailable Allergies Active Description Code Type Severity Reaction Onset Reported/Identified Relationship to Patient Clinical Status Yes PENICILLIN G POTASSIUM MODERATE MODERATE Yes No Known Drug Allergies [id number] Drug Allergy Unknown N/A 02/05/2019 Yes Penicillins [id number] Drug Aller gy Unknown N/A 02/05/2019 Yes shellfish derived [id number] Drug Allergy Unknown N/A 02/05/2019 Medications Medication Packaging Start Date St op Date Route Dosage Sig KETOROLAC VIAL INJ 60 MG/2CC (TORADOL VIAL ) MG 12/06/2019 12/06/2019 [id number] Problems Date Dx Coded Attending Type Code Diagnosis Diagnosed By 11/03/2014 ADAN HERNANDEZ MD (DDU) Ot 401.9 11/03/2014 ADAN HERNANDEZ MD (DDU) Ot 492.8 11/03/2014 ADAN HERNANDEZ MD (DDU) Ot 493.90 11/03/2014 ADAN HERNANDEZ MD (DDU) Ot 722.52 02/05/2019 MOSHE GUTIÉRREZ MD Ot J45.9 01 UNSPECIFIED ASTHMA WITH (ACUTE) EXACERBA 02/05/2019 MOSHE GUTIÉRREZ MD Ot R06.0 2 SHORTNESS OF BREATH 02/05/2019 MOSHE GUTIÉRREZ MD Ot Z88.0 ALLERGY STATUS TO PENICILLIN 02/05/2019 ADAN HERNANDEZ MD (DDU) Ot 401.9 HYPERTENSION NOS 02/05/2019 ADAN HERNANDEZ MD (DDU) Ot 492.8 EMPHYSEMA NEC 02/05/2019 ADAN HERNANDEZ MD (DDU) Ot 493.90 ASTHMA, UNSPECIFIED 02/05/2019 ADAN HERNANDEZ MD (DDU) Ot 722.52 LUMB/LUMBOSAC DISC DEGEN 12/06/2019 BOBO HILARIO 451.89 PHLEBITIS AND THROMBOPHLEBITIS OF OTHER SITES 12/06/2019 BOBO HILARIO 451.9 PHLEBITIS AND THROMBOPHLEBITIS OF UNSPECIFIED SITE 12/06/2019 BOBO HILARIO I80.00 PHLEBITIS AND THROMBOPHLEBITIS OF SUPERFICIAL VESSELS OF UNSPECIFIED LOWER EXTREMITY 12/06/2019 BOBO HILARIO Juliette I80.8 PHLEBITIS AND THROMBOPHLEBITIS OF OTHER SITES 12/06/2019 TALIA PRICE, ERIKA Bansal Ot M79.601 PAIN IN RIGHT ARM 12/13/2019 MELGAR ERIKA Ot M79.601 PAIN IN RIGHT ARM 12/25/2019 MCGREW , ERIKA Bansal Ot M79.601 PAIN IN RIGHT ARM 12/31/2019 ADAN HERNANDEZ MD (DDU) Ot 401.9 HYPERTENSION NOS 12/31/2019 ADAN HERNANDEZ MD (DDU) Ot 492.8 EMPHYSEMA NEC 12/31/2019 ADAN HERNANDEZ MD (DDU) Ot 493.90 ASTHMA, UNSPECIFIED 12/31/2019 ADAN HERNANDEZ MD (DDU) Ot 722.52 LUMB/LUMBOSAC DISC DEGEN 01/05/2020 LIYA GASTON MD Ot F17.210 NICOTINE DEPENDENCE, CIGARETTES, UNCOMPL 01/05/2020 LIYA GASTON MD Ot R11.2 NAUSEA WITH VOMITING, UNSPECIFIED 01/05/2020 LIYA GASTON MD Ot R55 SYNCOPE AND COLLAPSE 01/05/2020 LIYA GASTON MD Ot Z88.0 ALLERGY STATUS TO PENICILLIN 01/10/2020 LIYA GASTON MD Ot F17.210 NICOTINE DEPENDENCE, CIGARETTES, UNCOMPL 01/10/2020 LIYA GASTON MD Ot R11.2 NAUSEA WITH VOMITING, UNSPECIFIED 01/10/2020 LIYA GASTON MD Ot R55 SYNCOPE AND COLLAPSE 01/10/2020 LIYA GASTON MD Ot Z88.0 ALLERGY STATUS TO PENICILLIN Procedures There is no data. Results Test Result Range Complete blood count (CBC) with automate d white blood cell (WBC) differential - 12/31/19 10:30 Blood leukocytes automated count (number/volume) 9.2 10*3/uL 4.3-11.0 Blood erythrocytes automated count (number/volume) 3.48 10*6/uL 4.35-5.85 Venous blood hemoglobin measurement (mass/volume) 11.0 g/dL 13.3-17.7 Blood hematocrit (volume fraction) 33 % 40-54 Automated erythrocyte mean corpuscular volume 93 [ foz_us] 80-99 Automated erythrocyte mean corpuscular h emoglobin (mass per erythrocyte) 32 pg 25-34 Automated erythrocyte mean corpuscular h emoglobin concentration measurement (mass/volume) 34 g/dL 32-36 Automated erythrocyte distribution width ratio 12. 3 % 10.0- 14.5 Automated blood platelet count (count/volume) 210 10*3/uL 130-400 Automated blood platelet mean volume measurement 10.8 [foz_us] 7.4-10.4 Automated blood neutrophils/100 leukocytes 64 % 42-75 Automated blood lymphocytes/100 leukocytes 16 % 12-44 Blood monocytes/100 leukocytes 13 % 0-12 Automated blood eosinophils/100 leukocytes 6 % 0-10 Automated blood basophils/100 leukocytes 1 % 0-10 Blood neutrophils automated count (number/volume) 5.9 10*3 1.8-7.8 Blood lymphocytes automated count (number/volume) 1.5 10*3 1.0-4.0 Blood monocytes automated count (number/volume) 1. 2 10*3 0.0-1.0 Automated eosinophil count 0.6 10*3/uL 0 .0-0.3 Automated blood basophil count (count/volume) 0.1 10*3/uL 0.0-0.1 Comprehensive metabolic panel - 12/31/19 10:30 Serum or plasma sodium measurement (moles/volume) 136 mmol/L 135-145 Serum or plasma potassium measurement (moles/volume) 3.5 mmol/L 3.6-5.0 Serum or plasma chloride measurement (moles/volume) 96 mmol/L 98-107 Carbon dioxide 32 mmol/L 21-32 Serum or plasma anion gap determination (moles/volume) 8 mmol/L 5-14 Serum or plasma urea nitrogen measurement (mass/volume ) 24 mg/dL 7-18 Serum or plasma creatinine measurement (mass/volume) 1.01 mg/dL 0.60-1.30 Serum or plasma urea nitrogen/creatinine mass ratio 24 NRG Serum or plasma creatinine measurement w ith calculation of estimated glomerular filtration rate > NRG Serum or plasma glucose measurement (mass/volume) 105 mg/dL 70-105 Serum or plasma calcium measurement (mass/volume) 9.5 mg/dL 8.5-10.1 Serum or plasma total bilirubin measurement (mass/volu me) 0.6 mg/dL 0.1-1.0 Serum or plasma alkaline phosphatase juan luis surement (enzymatic activity/volume) 52 U/L 40-136 Serum or plasma aspartate aminotransfera se measurement (enzymatic activity/volume) 28 U/L 5-34 Serum or plasma alanine aminotransferase measurement (enzymatic activity/volume) 20 U/L 0-55 Serum or plasma protein measurement (mass/volume) 7.3 g/dL 6.4-8.2 Serum or plasma albumin measurement (mass/volume) 4.6 g/dL 3.2-4.5 Magnesium - 12/31/19 10:30 Magnesium 1.9 mg/dL 1.6-2.4 Serum or plasma troponin i.cardiac measu rement (mass/volume) - 12/31/19 10:30 Serum or plasma troponin i.cardiac measurement (mass/v olume) < ng/mL <0.028 Serum or plasma C reactive protein measu rement (mass/volume) - 12/31/19 10:30 Serum or plasma C reactive protein measurement (mass/v olume) 0.20 mg/dL 0.00-0.50 Complete urinalysis with reflex to cultu re - 12/31/19 11:28 Urine color determination YELLOW NRG Urine clarity determination CLEAR NR G Urine pH measurement by test strip 7.5 5-9 Specific gravity of urine by test strip 1.010 1.016-1.022 Urine protein assay by test strip, semi-quantitative NEGATIVE NEGATIVE Urine glucose detection by automated test strip NE GATIVE NEGATIVE Erythrocytes detection in urine sediment by light micr oscopy NEGATIVE NEGATIVE Urine ketones detection by automated test strip 1+ NEGATIVE Urine nitrite detection by test strip NEGATIVE NEGATIVE Urine total bilirubin detection by test strip NEGA TIVE NEGATIVE Urine urobilinogen measurement by automated test strip (mass/volume) 1.0 mg/dL < = 1.0 Urine leukocyte esterase detection by dipstick NEG ATIVE NEGATIVE Automated urine sediment erythrocyte cou nt by microscopy (number/high power field) NONE NRG Automated urine sediment leukocyte count by microscopy (number/high power field) RARE NRG Bacteria detection in urine sediment by light microsco py NEGATIVE NRG Squamous epithelial cells detection in u rine sediment by light microscopy NONE NRG Crystals detection in urine sediment by light microsco py NONE NRG Casts detection in urine sediment by light microscopy NONE NRG Mucus detection in urine sediment by light microscopy NEGATIVE NRG Complete urinalysis with reflex to culture NO NRG Encounters ACCT No. Visit Date/Time Discharge Status Pt. Type Provider Facility Loc./Unit Complaint [id number] 12/06/2019 08:31:00 12/06/2019 09:11 :00 DIS Outpatient BOBO HILARIO [id number] 12/06/2019 09:08:50 Document Registration [id number] 12/08/2019 16:15:00 12/08/2019 23:59:5 9 CLS Outpatient SELF, DALE Frye [facility] [id number] 12/31/2019 10:13:00 020 12:51:00 DIS Outpatient MARILIN CASANOVA, LIYA Smith [facility] N/V;FAINTING [id number] 12/06/2019 17:02:00 020 18:00:00 DIS Emergency ERIKA MELGAR DO [facility] ER FS RT ARM PAIN - SAYS THER ES A BLOOD CLOT IN ARM [id number] 02/05/2019 18:15:00 019 20:15:00 DIS Emergency MOSHE GUTIÉRREZ MD [facility] FS ASTHMA RELATED RESTRICT ED BREATHING [id number] 10/29/2014 12:47:00 015 23:59:59 CLS Outpatient ADAN HERNANDEZ MD (DDU) [facility] ASTHMA,HYPERTENSION,EMPHYSEMA,BACK PAIN
--- NOTE | 2020-01-18 21:29 | ED Integumentary General ---
General Chief Complaint: Allergic Reaction Stated Complaint: POSS ALLERGIC REACTION/FACE SWELLING History of Present Illness Date Seen by Provider: Jan 18, 2020 Time Seen by Provider: 21:00 Initial Comments Patient is here swelling the lower lip and left cheek area evidently is allergic to shellfish and shrimp at lunchtime usually does not reaction but says he thought this was a fresher match. Patient took Benadryl about 5 or 6 PM swelling still [place] his wanted him to get checked out. No wheezing no swelling in the throat no other symptomatology. Timing/Duration: this evening Severity: mild Location: face Possible Cause: exposure to allergen Modifying Factors: improves with antihistamine Associated Symptoms: No fever, No nasal congestion, No rash, No sore throat Allergies and Home Medications Allergies Coded Allergies: Penicillins (Verified Allergy, Unknown, 02/05/19) shellfish derived (Verified Allergy, Unknown, 02/05/19) Home Medications Ondansetron 4 Mg Tab.rapdis, 4 MG PO Q6H PRN for NAUSEA/VOMITING Prescribed by: LIYA GASTON on 12/31/19 1242 Patient Home Medication List Home Medication List Reviewed: Yes Review of Systems Review of Systems Constitutional: No chills, No fever EENTM: mouth swelling; No mouth pain, No nose congestion, No throat pain, No throat swelling Respiratory: No cough, No short of breath, No wheezing Gastrointestinal: No abdominal pain, No diarrhea, No nausea, No vomiting Skin: No pruritus, No rash Psychiatric/Neurological: Denies Headache, Denies Numbness, Denies Tingling Past Svlpivq-Ahetgv-Tcsaib Hx Past Med/Social Hx: Reviewed Nursing Past Med/Soc Hx Patient Social History Alcohol Beverage of Choice: Beer, Other Type Used: Cigarettes 2nd Hand Smoke Exposure: No Recent Foreign Travel: No Contact w/Someone Who Travel: No Recent Hopitalizations: No Seasonal Allergies Seasonal Allergies: Yes Past Medical History Surgeries: Yes (R middle finger/amputation, R ankle) Orthopedic Respiratory: Yes Asthma Cardiac: Yes Hypertension Neurological: Yes Headaches /Migraines Genitourinary: No Gastrointestinal: No Musculoskeletal: No Endocrine: No HEENT: No Cancer: No Psychosocial: No Blood Disorders: No Physical Exam Vital Signs Vital Signs - First Documented 01/18/20 21:05 Temp 36.7 Pulse 97 Resp 18 B/P (MAP) 154/82 (106) Pulse Ox 99 O2 Delivery Room Air Capillary Refill : General Appearance: WD/WN, no apparent distress HEENT: PERRL/EOMI, TMs normal, pharynx normal, other (swelling of the lower lip as well as left side of the cheek no pain slightly itchy.) Neck: non-tender, full range of motion, supple, normal inspection Cardiovascular: regular rate, rhythm, no murmur Respiratory: lungs clear, normal breath sounds, no respiratory distress Extremities: normal range of motion, normal inspection Neurologic/Psychiatric: no motor/sensory deficits, oriented x 3 Skin: normal color, warm/dry Progress/Results/Core Measures Results/Orders My Orders Orders - LOWELL ANNE JR, MD Methylprednisolone Sod Succ (Solu-Medrol (01/18/20 21:30) Medications Given in ED Current Medications Medications Dose Ordered Sig/Doug Route Start Time Stop Time Status Last Admin Dose Admin Methylprednisolone Sodium Succinate 125 mg ONCE ONCE IM 01/18/20 21:30 01/18/20 21:31 DC 01/18/20 21:37 125 MG Vital Signs/I&O 01/18/20 21:05 Temp 36.7 Pulse 97 Resp 18 B/P (MAP) 154/82 (106) Pulse Ox 99 O2 Delivery Room Air Departure Communication (Admissions) Discussed with patient about lab refill like this allergic reaction and not inf ection at this point but will follow up closely if not resolving or if any other signs of infection. We'll send home with Medrol Dosepak. Impression Primary Impression: Allergic reaction Qualified Codes: T78.40XA - Allergy, unspecified, initial encounter Disposition: HOME, SELF-CARE Condition: Stable Departure-Patient Inst. Referrals: SELFDALE MD (PCP/Family) Primary Care Physician Patient Instructions: Food Allergy Add. Discharge Instructions: Follow-up with her primary care physician if no improvement continue to take Benadryl every 6 hours at home. All discharge instructions reviewed with patient and/or family. Voiced understanding. Scripts Methylprednisolone (Medrol) 4 Mg Tab.ds.pk 4 MG PO UD for 6 Days, #21 PKG PER DOSE PACK INSTRUCTIONS Prov: LOWELL ANNE JR, MD 01/18/20 LOWELL ANNE JR, MD Jan 18, 2020 21:29
[2020-01-18] MEDS ORDERED: methylPREDNISolone 125 MG (Solu-MEDROL) VIAL IM ONE (21:30)
[2020-01-18] MEDS ORDERED: METH4TAB PO (21:56)
[2020-01-18 21:58] VITALS: BP 154/82
== END 2020-01-18 21:58 | disposition home or self-care (01) ==
LOC: EDUNIT# 20:56 → ER FS 20:58
DX: T78.1XXA Other adverse food reactions, not elsewhere classified, initial encounter (principal); R22.0 Localized swelling, mass and lump, head
CPT/HCPCS: 99284

== ENCOUNTER 2020-01-19 02:00 | Emergency (ER) | payer BC ==
[~2020-01-19] VITALS: Ht 166 cm; Wt 66.2 kg
[~2020-01-19 02:00] MED LIST changes: +METH4TAB PO
--- OUTSIDE RECORDS SUMMARY | 2020-01-19 02:07 | XMS REPORT ---
Author Author [employer] Organization [employer] Address [address] [address] Care Team Providers Care Senior Project Coordinator Name Role Phone LEYDI ZAYAS Unavailable LEYDI [...] penicillin v 05-23-2018 - Unknown D RHETT [facility] (1 source.) Translations: [id number] [facility] [ Penicillin V of [place] Pot[place]] [place] ([id number]) Food Allergy Shellfish Shellfish 02-05-2019 - shellfish ADAN FREGOSO [facility] Via (13 sources.) Translations: derived (DDU) Stephanie [ shellfish ([id number]) Hospital - derived] [place] ([id number]) Medications Current Medications Medication Ingredient Drug Dose Dates Status Sig Sig Care Class(es) (Normalized) (Original) Provid er acetaminoph acetaminoph Opioid 05-23-20 Active no [place] no en 325 mg / en / Agonist 18 information 7.5-325 MG n surendra HYDROcodone HYDROcodone Orally every (no bitartrate Translation 6 hrs 1 phone) 7.5 mg oral s: [ [place] tablet as tablet (1 7.5-325 MG] needed [...] to penicillin MD Brown sources.) Hospital - [place] () Asthma (4 Asthma, 12-31-2019 - Chronic Active ADAN HERNANDEZ V [facility] Via sources.) unspecified (DDU) [facility] ([id number]) [ UNSPECIFIED ASTHMA WITH (ACUTE) EXACERBA] Spondylosis; Degeneration 12-31-2019 - Chronic Active ADAN ERWIN IS , [facility] Via intervertebral of lumbar or (DDU) [facility] disc lumbosacral Hospital - disorders; intervertebral [place] other back disc () problems (2 sources.) Nausea and Nausea with 01-05-2020 - Episodic Active LIYA [facility] Via vomiting (4 vomiting, MD Stephanie GASTON sources.) unspecified Hospital - [place] () Substance-rela Nicotine 01-05-2020 - Chronic Active LIYA [facility] Via elaine disorders dependenceMARILIN [facility] (2 sources.) cigarettes, Hospital - uncomplicated [place] ([id number]) Chronic Other 12-31-2019 - Chronic Active ADAN HERNANDEZ [facility] Via obstructive emphysema (DDU) [facility] pulmonary Hospital - disease and [place] bronchiectasis (38612) (2 sources.) Other Pain in right 12-13-2019 - Episodic Active ERIKA FREE MAN [facility] Via connective arm , DO [facility] tissue [facility] - (6 sources.) [place] ([id number]) Phlebitis; Phlebitis and 12-06-2019 - Episodic Active [facility] thrombophlebit thrombophlebit [facility] of is and is of [facility] ([address]) m (8 sources.) vessels of unspecified lower extremity Translations: [ PHLEBITIS AND THROMBOPHLEBIT IS OF UNSPECIFIED SITE, PHLEBITIS AND THROMBOPHLEBIT IS OF OTHER SITES, PHLEBITIS AND THROMBOPHLEBIT IS OF OTHER SITES] Other lower Shortness of 12-31-2019 - Episodic Active MOSHE DESHPANDE [facility] Via respiratory breath [facility] (2 Hospital - sources.) [place] ([id number]) Syncope (2 Syncope and 01-05-2020 - Episodic Active LIYA [facility] Via sources.) collapse MD MARILIN [facility] ([id number]) Essential Unspecified 12-31-2019 - Chronic Active ADAN HERNANDEZ [facility] Via hypertension essential (DDU) [facility] (2 sources.) hypertension [facility] (15086) Procedures Procedure Normalized Procedure Procedure Result Performer Facility Date 05-23-2018 Billing Notes on claim no information no name (no p juan david) [facility] ([id number]) 12-31-2019 CT of head without no information no name (no phone ) [place] Via [facility] ([id number]) 12-31-2019 Electrocardiographic no information no name (no omkar ne) [place] Via [facility] ([id number]) 05-23-2018 Extraction erupted no information no name (no phone ) [facility] tooth/exr [facility] ([id number]) 05-23-2018 Intraoral periapical no information no name (no omkar ne) [facility] ea add [facility] ([id number]) 05-23-2018 Intraoral periapical no information no name (no omkar ne) [facility] ([id number]) 12-31-2019 Plain chest X-ray no information no name (no phone) [place] [facility] ([id number]) 08-03-2018 Rem imp tooth w no information no name (no phone) [facility] - mucoper flp [facility] 05-23-2018 [place] ([id number]) - 05-23-2018 Immunizations Normalized Immunization Date Notes Care Provider Facili ty Immunization influenza, seasonal, 09-16-2019 no information no name Co mm[facility]ly [facility] injectable Center [facility] - [facility] ([id number]) pneumococcal 09-16-2019 no information no name [facility] polysaccharide [facility] vaccine, 23 valent - [facility] ([id number]) vaccine no information [facility] [id number] [place] V ia Translations: [ [facility] vaccine] (16806) Results Test Name Value Interpretation Reference Range Date Time Fa cility (Normalized) (Normalized) (Medline Reference) venous blood hemoglobin measurement (mass/volume) on 2019-12-31 Hemoglobin (Bld) 11.0 g/dL (L) 12.1 - 17.2 g/dL 12-31-2019 [place] Via [Mass/Vol] 13:30-0400 [facility] ([id number]) blood monocytes/100 leukocytes on 2019-12-31 Monocytes/100 13 % (H) 2 - 8 % 12-31-2019 [facility] WBC (Bld) 13:30-0400 [facility] ([id number]) blood monocytes automated count (number/volume) on 2019-12-31 Monocytes (Bld) 1.2 10*3/uL (H) 0.3 - 0.9 12-31-2019 [facility] Via [#/Vol] 10*3/uL 13:30-0400 [facility] l (75138) blood hematocrit (volume fraction) on 2019-12-31 Hematocrit (Bld) 33 % (L) 36.1 - 50.3 % 12-31-2019 [facility] [Volume 13:30-0400 [facility] fraction] (65195) blood erythrocytes automated count (number/volume) on 2019-12-31 RBC (Bld) 3.48 10*6/uL (L) 4.2 - 6.1 12-31-2019 [place] Via [#/Vol] 10*6/uL 13:30-0400 [facility] l ([id number]) automated erythrocyte mean corpuscular volume (mcv) measurement on 2019-12-31 MCV (RBC) 93 fL (no code) 80 - 100 fL 12-31-2019 [place] Via [Entitic vol] 13:30-0400 [facility] ([id number]) automated erythrocyte mean corpuscular hemoglobin concentration measurement (mass/volume) on 2019-12-31 MCHC (RBC) 34 g/dL (no code) 32 - 36 g/dL 12-31-2019 [facility] [Mass/Vol] 13:30-0400 [facility] ([id number]) automated erythrocyte mean corpuscular hemoglobin (mass per erythrocyte) on 2019-12-31 MCH (RBC) 32 pg (no code) 27 - 31 pg 12-31-2019 [place] V ia [Entitic mass] 13:300400 [facility] ([id number]) automated erythrocyte distribution width ratio on 2019-12-31 Erythrocyte 12.3 % (no code) 11.6 - 14.6 % 12-31-2019 [facility] Via distribution 13:30 [facility] width (RBC) ([id number]) [Ratio] automated eosinophil count on 2019-12-31 Eosinophils 0.6 10*3/uL (H) 0.05 - 0.5 12-31-2019 [facility] Via (Bld) [#/Vol] 10*3/uL [facility] platelet mean volume measurement on 2019-12-31 Platelet mean 10.8 fL (H) 7.2 - 11.7 fL 12-31-2019 [facility] volume (Bld) 13:30040 [facility] [Entitic vol] ([id number]) automated blood platelet count (count/volume) on 2019-12-31 Platelets (Bld) 210 10*3/uL (no code) 150 - 450 12-31-2019 [facility] Via [#/Vol] 10*3/uL 13:30-0400 [facility] ([id number]) automated blood neutrophils/100 leukocytes on 2019-12-31 Neutrophils/100 64 % (no code) 40 - 60 % 12-31-2019 [facility] WBC (Bld) 13:300400 [facility] ([id number]) automated blood neutrophil count (number/volume) on 2019-12-31 Neutrophils 5.9 10*3/uL (no code) 1.7 - 7 10*3/uL 12-31-2019 [facility] Via (Bld) [#/Vol] 13:30 [facility] ([id number]) automated blood lymphocytes/100 leukocytes on 2019-12-31 Lymphocytes/100 16 % (no code) 20 - 40 % 12-31-2019 [facility] WBC (Bld) 13:30 [facility] ([id number]) automated blood lymphocyte count (number/volume) on 2019-12-31 Lymphocytes 1.5 10*3/uL (no code) 0.9 - 2.9 12-31-2019 [facility] Via (Bld) [#/Vol] 10*3/uL 13: [facility] al ([id number]) automated blood leukocyte count (number/volume) on 2019-12-31 WBC (Bld) 9.2 10*3/uL (no code) 3.5 - 10.5 12-31-2019 [place] Via [#/Vol] 10*3/uL 13:30 [facility] l ([id number]) automated blood eosinophils/100 leukocytes on 2019-12-31 Eosinophils/100 6 % (no code) 1 - 4 % 12-31-2019 [facility] WBC (Bld) 13: [facility] () automated blood basophils/100 leukocytes on 2019-12-31 Basophils/100 1 % (no code) 0.5 - 1 % 12-31-2019 [facility] WBC (Bld) 13: [facility] ([id number]) automated blood basophil count (number/volume) on 2019-12-31 Basophils (Bld) 0.1 10*3/uL (no code) 0 - 0.3 10*3/uL 12-31-2019 [place] Via [#/Vol] 13: [facility] ([id number]) Vital Signs The data below is from unstructured sources Blood pressure systolic 133 mmHg 2017-10-11 Blood pressure diastolic 89 mmHg 2017-10-11 Blood pressure systolic 166 mmHg 2018-05-23 Blood pressure diastolic 99 mmHg 2018-05-23 Vital Response Date/Time Temperature (Fahrenheit) 97.6 degree s F (97.6 - 99.5) 02/05/2019 8:19pm Temperature (Calculated Celsius) 36. 57769 degrees C (36.4 - 37.5) 02/05/2019 8:19pm [...] inches 02/05/2019 6:21pm Height (Calculated Centimeters) 172. 139376 cm 02/05/2019 6:21pm Height Method Stated 6:21pm Weight (Pounds) 156 pounds 02/05/2019 6:21pm Weight (Calculated Grams) 41665.41 gm 02/05/2019 6:21pm Weight (Calculated Kilograms) 70.760 [...] no information no information MD HUNTER SELF [place] [facility] [address] [place] [address] ([id number]) Patient referral no information no information MD HUNTER SELF [place] [facility] [address] [place] [address] ([id number]) Goals Patient Goal Desired Goal no information no information Social History Normalized Code Original Code Date Value Tobacco smoking status Tobacco smoking status no information Current some day smoker [facility] no information no information 12-31-2019 Occasionally Us [...] Stephanie - patient visit phone) LIYA Smith [facility] 12-31-2019 MARILIN CASANOVA (no phone) (no phone) 12-06-2019 Emergency department no information (no phone) [facility] Stephanie - patient visit Hospital (no phone) 12-06-2019 12-06-2019 Emergency department no information ERIKA MELGAR DO (no [facility] Via [place] - patient visit phone) [facility] 12-06-2019 (no phone) 02-05-2019 Emergency department no information MOSHE goldsmith no organization name - patient visit (no phone ) 02-05-2019 02-05-2019 Emergency department no information MOSHE Smith (no [facility] Via [place] - patient visit phone) [facility] 02-05-2019 (no phone) 05-23-2018 Limit oral eval problm no information no name (no p juan david) no organization name focus (no phone) 05-23-2018 Patient encounter no information no name (no phone) no organization name (no phone) 12-31-2019 Patient encounter no information LIYA GASTON MD [facility] Via [place] procedure (no phone) [facility] (no phone) 12-08-2019 Patient encounter no information [facility]ALE RAMOS ([facility] phone) [facility] (no phone) 12-06-2019 Patient encounter no information ERIKA MELGAR DO (no [facility] Via Stephanie procedure phone) [facility] (no phone) 12-06-2019 Patient encounter no information Tim Rob (no omkar ne) [facility] - procedure LYNSYLVIAA LEISURE (no of [facility] (no 12-06-2019 phone) LYNIETA LEISURE phone) (no [...] (DDU) (no [facility] Via Stephanie procedure phone) [facility] (no phone) 05-19-2018 Telephone encounter no information [...] Equipment Information available Payers Normalized Payer Value [facility] [id number]) [facility] no information Evaluation note Note Type Note Facility Evaluation No Assessments Information Available [facility] note Via [facility] ([id number]) Advance Directives Directive Response Recor ded Date/Time Advance Directives No 6:21pm Resuscitation Status Full Code 02/05/19 6:21pm Advance Directive Response Recorded Date/Time Advance Directives No [facility] 2019 10:23am Health Care Power of Taproom Attendant No December 06, 2019 5:20pm Organ Donor No December 06, 2019 5:20pm Resuscitation Status Full Code December 31, 2019 10:23am Chief Complaint and Reason for Visit Chief Complaint Respiratory Problems Reason for Visit Asthma with acute e xacerbation in adult Chief Complaint Dizziness/Syncope Reason for Visit [id number] Discharge Instructions No hospital discharge instruction information available. Additional Source Comments This clinical document has been generated using [employer] software that has been certified by the Office of the National Coordinator for Health Information Technology (ONC 15.99.04.3023.Diam.31.00.0.835923) and the National Committee for Director Of Culture (NCQA, as an eMeasure certified technology). FOR [...] and clinical context of patient data. In keleey tion, data may be omitted in some cases. CLINICAL DECISIONS SHOULD BE BASED ON T HE PRIMARY CLINICAL RECORDS. [employer] provides no warranty or guara ntee of [...]
--- OUTSIDE RECORDS SUMMARY | 2020-01-19 02:08 | XMS REPORT | Continuity of Care Document ---
Author Organization Unknown Address Unknown Phone Unavailable Allergies Active Description Code Type Severity Reaction Onset Reported/Identified Relationship to Patient Clinical Status Yes PENICILLIN G POTASSIUM MODERATE MODERATE Yes No Known Drug Allergies [id number] Drug Allergy Unknown N/A 02/05/2019 Yes Penicillins [id number] Drug Aller gy Unknown N/A 02/05/2019 Yes shellfish derived [id number] Drug Allergy Unknown N/A 02/05/2019 Medications Medication [...] HERNANDEZ MD (DDU) Ot 722.52 02/05/2019 MOSHE UGTIÉRREZ MD Ot J45.9 01 UNSPECIFIED ASTHMA WITH [...] Ot M79.601 PAIN IN RIGHT ARM 12/25/2019 OMAHA , ERIKA Bansal Ot M79.601 PAIN IN [...] Status Pt. Type Provider Facility Loc./Unit Complaint [id number] 12/06/2019 08:31:00 12/06/2019 09:11 :00 DIS Outpatient BOBO HILARIO [id number] 12/06/2019 09:08:50 Document Registration [id number] 12/08/2019 16:15:00 12/08/2019 23:59:5 9 CLS Outpatient SELF, DALE Frye [facility] [id number] 12/31/2019 10:13:00 020 12:51:00 DIS Outpatient MARILIN CASANOVA, LIYA Smith [facility] ER N/V;FAINTING [id number] 12/06/2019 17:02:00 020 18:00:00 DIS Emergency ERIKA MELGAR DO Via [facility] ER FS RT ARM PAIN - SAYS THER ES A BLOOD CLOT IN ARM [id number] 02/05/2019 18:15:00 019 20:15:00 DIS Emergency MOSHE GUTIÉRREZ MD Via [facility] ER FS ASTHMA RELATED RESTRICT ED BREATHING [id number] 10/29/2014 12:47:00 015 23:59:59 CLS Outpatient ADAN HERNANDEZ MD (DDU) Via [facility] RAD ASTHMA,HYPERTENSION,EMPHYSEMA,BACK PAIN
[2020-01-19] MEDS ORDERED: diphenhydrAMINE 50 MG/ML INJ (BENADRYL) IVP ONE (02:15)
[2020-01-19] MEDS ORDERED: FAMOTIDINE 20MG/2ML IV (PEPCID) IVP ONE (02:15)
--- NOTE | 2020-01-19 02:18 | ED Integumentary General ---
General Chief Complaint: Allergic Reaction Stated Complaint: SWOLLEN LIPS Nursing Triage Note: Pt states he ate shrimp around noon yesterday and has a known allergy to shellfish. Pt presents with facial swelling but denies any difficulty breathing. History of Present Illness Date Seen by Provider: Jan 19, 2020 Time Seen by Provider: 02:00 Initial Comments Patient return visit and lower lip swelling related to seafood ingestion which he knew he is allergic to now returning with upper lip swelling lower lip as improved no changes in breathing has taken a Benadryl Timing/Duration: yesterday Severity: mild Location: face Possible Cause: exposure to allergen Modifying Factors: improves with antihistamine, improves with prednisone Associated Symptoms: No edema, No nasal congestion, No sore throat Allergies and Home Medications Allergies Coded Allergies: Penicillins (Verified Allergy, Unknown, 02/05/19) shellfish derived (Verified Allergy, Unknown, 02/05/19) Home Medications Methylprednisolone 4 Mg Tab.ds.pk, 4 MG PO UD PER DOSE PACK INSTRUCTIONS Prescribed by: LOWELL ANNE on 01/18/202155 Ondansetron 4 Mg Tab.rapdis, 4 MG PO Q6H PRN for NAUSEA/VOMITING Prescribed by: LIYA GASTON on 12/31/19 1242 Patient Home Medication List Home Medication List Reviewed: Yes Review of Systems Review of Systems Constitutional: No chills, No fever EENTM: mouth swelling; No throat swelling Respiratory: No dyspnea on exertion, No short of breath, No wheezing Cardiovascular: No chest pain, No palpitations Gastrointestinal: No abdominal pain, No nausea, No vomiting Skin: No pruritus, No rash Past Pxbspdk-Wambvd-Alvsth Hx Past Med/Social Hx: Reviewed Nursing Past Med/Soc Hx Patient Social History Alcohol Use: Rarely Uses Number of Drinks Today: AA Alcohol Beverage of Choice: Beer Recreational Drug Use: No Smoking Status: Current Everyday Smoker Type Used: Cigarettes 2nd Hand Smoke Exposure: No Recent Foreign Travel: No Contact w/Someone Who Travel: No Recent Infectious Disease Expo: No Recent Hopitalizations: No Physical Abuse: No Sexual Abuse: No Seasonal Allergies Seasonal Allergies: Yes Past Medical History Surgeries: Yes (R middle finger/amputation, R ankle) Orthopedic Respiratory: Yes Asthma Cardiac: Yes Hypertension Neurological: Yes Headaches /Migraines Genitourinary: No Gastrointestinal: No Musculoskeletal: No Endocrine: No HEENT: No Cancer: No Psychosocial: No Integumentary: No Blood Disorders: No Physical Exam Vital Signs Vital Signs - First Documented 01/19/20 02:04 Temp 35.6 Pulse 97 Resp 18 B/P (MAP) 143/87 (105) Pulse Ox 95 O2 Delivery Room Air Capillary Refill : Less Than 3 Seconds General Appearance: WD/WN, mild distress HEENT: PERRL/EOMI, TMs normal, pharynx normal, other (swelling to the upper lip with minimal swelling of the lower lip rest of face is improved over what it was before no evidence of throat swelling.) Neck: non-tender, normal inspection Cardiovascular: regular rate, rhythm, no murmur Respiratory: lungs clear, normal breath sounds, no respiratory distress Neurologic/Psychiatric: normal mood/affect, oriented x 3 Skin: normal color, warm/dry Progress/Results/Core Measures Results/Orders My Orders Orders - LOWELL ANNE JR, MD Famotidine Injection (Pepcid Injection) (01/19/20 02:15) Diphenhydramine Injection (Benadryl Inje (01/19/20 02:15) Medications Given in ED Current Medications Medications Dose Ordered Sig/Doug Route Start Time Stop Time Status Last Admin Dose Admin Diphenhydramine HCl 25 mg ONCE ONCE IVP 01/19/20 02:15 01/19/20 02:16 DC 01/19/20 02:21 25 MG Famotidine 20 mg ONCE ONCE IVP 01/19/20 02:15 01/19/20 02:16 DC 01/19/20 02:21 20 MG Vital Signs/I&O 01/19/20 02:04 Temp 35.6 Pulse 97 Resp 18 B/P (MAP) 143/87 (105) Pulse Ox 95 O2 Delivery Room Air Blood Pressure Mean: 105 Progress Progress Note : Time: 03:41 Progress Note improving slowly Departure Impression Primary Impression: Allergic reaction Qualified Codes: T78.40XD - Allergy, unspecified, subsequent encounter Disposition: 01 HOME, SELF-CARE Condition: Stable Departure-Patient Inst. Referrals: DALE RAMOS MD (PCP/Family) Primary Care Physician Patient Instructions: Food Allergy LOWELL ANNE JR, MD Jan 19, 2020 02:18
[2020-01-19 03:43] VITALS: BP 122/83
== END 2020-01-19 03:45 | disposition home or self-care (01) ==
LOC: EDUNIT# 02:00 → ER FS 02:02
DX: T78.1XXD Other adverse food reactions, not elsewhere classified, subsequent encounter (principal); R22.0 Localized swelling, mass and lump, head; I10 Essential (primary) hypertension; F17.210 Nicotine dependence, cigarettes, uncomplicated
CPT/HCPCS: 99282

== ENCOUNTER 2020-07-21 04:27 | Emergency (ER) | payer BC ==
[~2020-07-21] VITALS: Ht 172.7 cm; Wt 68.0 kg
[2020-07-21] MEDS ORDERED: RT-ALBUTEROL/IPRATROPIUM 3 ML (DUONEB) VIAL ONE (04:30)
[2020-07-21 04:32] VITALS: BP 162/115
[2020-07-21] MEDS ORDERED: RT-ALBUTEROL/IPRATROPIUM 3 ML (DUONEB) VIAL INH ONE ×2 (04:45)
--- NOTE | 2020-07-21 04:46 | ED Respiratory ---
General Chief Complaint: Respiratory Problems Stated Complaint: ASTHMA ATTACK Nursing Triage Note: PT AMBULATE TO ROOM FS02 WITH C/O ASTHMA ATTACK. PT STATES THAT HE TRIED A BREATHING TX AT HOME WITH NO RELIEF. 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 PT REPORTS HX OF ASTHMA SINCE CHILDHOOD. 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 Used albuterol inh without any relief at home, so came to ER immediately. No recent illness, fever, cough or known exposure to Covid. Allergies and Home Medications Allergies Coded Allergies: Penicillins (Verified Allergy, Unknown, 02/05/19) shellfish derived (Verified Allergy, Unknown, 02/05/19) Home Medications Methylprednisolone 4 Mg Tab.ds.pk, 4 MG PO UD PER DOSE PACK INSTRUCTIONS Prescribed by: LOWELL ANNE on 01/18/202155 Ondansetron 4 Mg Tab.rapdis, 4 MG PO Q6H PRN for NAUSEA/VOMITING Prescribed by: LIYA GASTON on 12/31/19 1242 Patient Home Medication List Home Medication List Reviewed: Yes Review of Systems Review of Systems Constitutional: see HPI; No dizziness, No fever, No malaise, No weakness EENTM: no symptoms reported Respiratory: cough, dyspnea on exertion, short of breath, wheezing Cardiovascular: No chest pain, No edema, No palpitations Gastrointestinal: No abdominal pain, No diarrhea, No nausea, No vomiting Musculoskeletal: No back pain, No joint pain Past Nlvcytv-Ncsclp-Yejssn Hx Past Med/Social Hx: Reviewed Nursing Past Med/Soc Hx Patient Social History Alcohol Use: Occasionally Uses Number of Drinks Today: AA Alcohol Beverage of Choice: Beer Recreational Drug Use: No Smoking Status: Current Everyday Smoker Type Used: Cigarettes 2nd Hand Smoke Exposure: No Recent Foreign Travel: No Contact w/Someone Who Travel: No Recent Infectious Disease Expo: No Recent Hopitalizations: No Physical Abuse: No Sexual Abuse: No Mistreated: No Fear: No Seasonal Allergies Seasonal Allergies: Yes Past Medical History Surgeries: Yes (R middle finger/amputation, R ankle) Orthopedic Respiratory: Yes Asthma Cardiac: Yes Hypertension Neurological: Yes Headaches /Migraines Genitourinary: No Gastrointestinal: No Musculoskeletal: No Endocrine: No HEENT: No Cancer: No Psychosocial: No Integumentary: No Blood Disorders: No Physical Exam Vital Signs - First Documented 07/21/20 04:32 Temp 35.8 Pulse 129 Resp 22 B/P (MAP) 162/115 (131) O2 Delivery Room Air Capillary Refill : Less Than 3 Seconds Height: 5'8.00" Weight: 156lbs. oz. 70.480527nc; 22.00 BMI Method:Stated General Appearance: WD/WN, no apparent distress HEENT: PERRL/EOMI, normal ENT inspection Neck: non-tender, full range of motion, supple Respiratory: chest non-tender, decreased breath sounds, accessory muscle use, wheezing Cardiovascular: regular rate, rhythm, no edema, no JVD Gastrointestinal: non tender, soft Extremities: non-tender, no pedal edema, no calf tenderness Neurologic/Psychiatric: alert, normal mood/affect, oriented x 3 Skin: normal color, warm/dry Progress/Results/Core Measures Suspected Sepsis Recent Fever Within 48 Hours: No Infection Criteria Present: None New/Unexplained Altered Menta: No Sepsis Screen: No Definite Risk SIRS Temperature: Pulse: 129 Respiratory Rate: 22 Blood Pressure 162 /115 Mean: 131 Results/Orders My Orders Orders - REBECCA PORTER DO Albuterol/Ipra Inhalation Soln (Duoneb I (07/21/20 04:45) Svn Small Volume Nebulizer (07/21/20 04:32) Albuterol/Ipra Inhalation Soln (Duoneb I (07/21/20 04:30) Prednisone Tablet (Deltasone Tablet) (07/21/20 07:00) Albuterol/Ipra Inhalation Soln (Duoneb I (07/21/20 04:45) Svn Small Volume Nebulizer (07/21/20 04:40) Rx-Albuterol Inhaler (Rx-Ventolin Hfa) (07/21/20 04:58) Medications Given in ED Current Medications Medications Dose Ordered Sig/Doug Route Start Time Stop Time Status Last Admin Dose Admin Albuterol/ Ipratropium 3 ml ONCE ONCE INH 07/21/20 04:45 07/21/20 04:46 DC 07/21/20 04:42 3 ML Albuterol/ Ipratropium 3 ml ONCE ONCE INH 07/21/20 04:45 07/21/20 04:46 DC 07/21/20 04:47 3 ML Vital Signs/I&O 07/21/20 04:32 Temp 35.8 Pulse 129 Resp 22 B/P (MAP) 162/115 (131) O2 Delivery Room Air Capillary Refill : Less Than 3 Seconds 2 Blood Pressure Mean: 131 Progress Note : Progress Note much improved p 2 duonebs and po steroids. Given "take home" inhaler as pt doesn't have one and pharmacy is closed. Discussed smoking cessation, seeing his PCP and not running out of inhalers Departure Impression Primary Impression: Asthma exacerbation Qualified Codes: J45.901 - Unspecified asthma with (acute) exacerbation Disposition: HOME, SELF-CARE Condition: Improved Departure-Patient Inst. Decision time for Depature: 05:01 Referrals: SELF,DALE CASANOVA (PCP/Family) Primary Care Physician Patient Instructions: Asthma, Adult (DC) Add. Discharge Instructions: see your PCP in 2 days for re-evaluation of your asthma and to discuss smoking cessation All discharge instructions reviewed with patient and/or family. Voiced understanding. REBECCA PORTER DO Jul 21, 2020 04:46
[2020-07-21] MEDS ORDERED: RX-ALBUTEROL INHALER (VENTOLIN HFA) 18 GM IH STA (04:58)
[2020-07-21] MEDS ORDERED: predniSONE 20 MG TAB PO SCH (07:00)
== END 2020-07-21 05:05 | disposition home or self-care (01) ==
LOC: EDUNIT# 04:27 → ER FS 04:28
DX: J45.901 Unspecified asthma with (acute) exacerbation (principal); F17.210 Nicotine dependence, cigarettes, uncomplicated; Z79.52 Long term (current) use of systemic steroids; Z88.0 Allergy status to penicillin
CPT/HCPCS: 99283

== ENCOUNTER 2021-04-01 20:24 | Emergency (ER) | payer BC ==
[~2021-04-01] VITALS: Ht 172 cm; Wt 74.0 kg
[2021-04-01] MEDS ORDERED: RT-ALBUTEROL/IPRATROPIUM 3 ML (DUONEB) VIAL INH STA (20:36)
[2021-04-01] MEDS ORDERED: NS IV 1000 ML 1,000 ML IV STA (20:36)
[2021-04-01] MEDS ORDERED: diphenhydrAMINE 50 MG/ML INJ (BENADRYL) IVP STA (20:36)
[2021-04-01] MEDS ORDERED: FAMOTIDINE 20MG/2ML IV (PEPCID) IVP STA (20:36)
--- NOTE | 2021-04-01 20:44 | ED General ---
General Chief Complaint: Allergic Reaction Stated Complaint: ALLERGIC REACTION Source of Information: Patient, Spouse History of Present Illness Date Seen by Provider: Apr 01, 2021 Time Seen by Provider: 20:28 Initial Comments 56-year-old male presenting with upper lip swelling. He states he was eating out and had fried mushrooms. He does have an allergy to shellfish and seafood and was eating a restaurant that also cooks and serves seafood.. He states this started 2 to 3 hours ago. He has had sudden swelling of the upper lip. He denies shortness of breath or wheezing but does have a history of asthma. He has taken a total of 50 mg of Benadryl over the last few hours. He states that things were not improving and his made him come to the emergency department because they were worried about the they are waiting. He has had no stridor or cough or trouble breathing or swallowing. He also has drink at least a 12 pack of beer today. Timing/Duration: 1-3 Hours Severity: Moderate Associated Systoms: No Chest Pain, No Cough, No Diaphoresis, No Fever/Chills, No Headaches, No Loss of Appetite, No Malaise, No Nausea/Vomiting, No Rash, No Seizure, No Shortness of Air, No Syncope, No Weakness Allergies and Home Medications Allergies Coded Allergies: Penicillins (Verified Allergy, Unknown, 02/05/19) shellfish derived (Verified Allergy, Unknown, 02/05/19) Home Medications Famotidine 20 Mg Tablet, 20 MG PO BID Prescribed by: MOSHE GUTIÉRREZ on 04/01/212140 Methylprednisolone 4 Mg Tab.ds.pk, 4 MG PO UD PER DOSE PACK INSTRUCTIONS Prescribed by: LOWELL ANNE on 01/18/202155 Ondansetron 4 Mg Tab.rapdis, 4 MG PO Q6H PRN for NAUSEA/VOMITING Prescribed by: LIYA GASTON on 12/31/19 1242 Prednisone 20 Mg Tab, 40 MG PO DAILY Prescribed by: MOSHE GUTIÉRREZ on 04/01/212140 Patient Home Medication List Home Medication List Reviewed: Yes Review of Systems Review of Systems Constitutional: No chills, No fever EENTM: other (Swelling to his upper lip) Respiratory: no symptoms reported; No stridor, No wheezing Cardiovascular: no symptoms reported Gastrointestinal: no symptoms reported Genitourinary: no symptoms reported Musculoskeletal: no symptoms reported Skin: no symptoms reported Psychiatric/Neurological: No Symptoms Reported Hematologic/Lymphatic: No Symptoms Reported Immunological/Allergic: food allergy Past Zrstvwa-Hwdumm-Dvucwg Hx Past Med/Social Hx: Reviewed Nursing Past Med/Soc Hx Patient Social History Alcohol Use: Regular Use Number of Drinks Today: 12 Alcohol Beverage of Choice: Beer Smoking Status: Current Someday Smoker Type Used: Cigarettes 2nd Hand Smoke Exposure: No Recent Hopitalizations: No Seasonal Allergies Seasonal Allergies: Yes Past Medical History Surgeries: Yes (R middle finger/amputation, R ankle) Orthopedic Respiratory: Yes Asthma Cardiac: Yes Hypertension Neurological: Yes Headaches /Migraines Genitourinary: No Gastrointestinal: No Musculoskeletal: No Endocrine: No HEENT: No Cancer: No Psychosocial: No Integumentary: No Blood Disorders: No Physical Exam Vital Signs Vital Signs - First Documented 04/01/21 20:31 Temp 36.1 Pulse 95 Resp 16 B/P (MAP) 142/95 (111) Pulse Ox 97 O2 Delivery Room Air Capillary Refill : Height, Weight, BMI Height: 5'8.00" Weight: 156lbs. oz. 70.926795rt; 22.00 BMI Method:Stated General Appearance: No Apparent Distress, WD/WN HEENT: Other (Swelling to his upper lip no stridor and no obvious swelling to his pharynx) Neck: Full Range of Motion, Normal Inspection, Non Tender, Supple Respiratory: Chest Non Tender, Lungs Clear, Normal Breath Sounds; No Stridor, No Wheezing Cardiovascular: Regular Rate, Rhythm, Normal Peripheral Pulses Extremity: Normal Capillary Refill, No Pedal Edema Neurologic/Psychiatric: Alert, Oriented x3, carton wrapper II-XII Norm as Tested Skin: Normal Color, Warm/Dry, Other (upper lip swelling) Progress/Results/Core Measures Suspected Sepsis SIRS Temperature: Pulse: Respiratory Rate: Blood Pressure / Mean: Results/Orders My Orders Orders - MOSHE GUTIÉRREZ MD Ed Iv/Invasive Line Start (04/01/21 20:36) Diphenhydramine Injection (Benadryl Inje (04/01/21 20:36) Dexamethasone Injection (Decadron Inje (04/01/21 20:36) Famotidine Injection (Pepcid Injection) (04/01/21 20:36) Albuterol/Ipra Inhalation Soln (Duoneb I (04/01/21 20:36) Ns Iv 1000 Ml (Sodium Chloride 0.9%) (04/01/21 20:36) Svn Small Volume Nebulizer (04/01/21 20:36) Epinephrine 1 Mg Injection (Adrenalin I (04/01/21 21:36) Vital Signs/I&O 04/01/21 20:31 Temp 36.1 Pulse 95 Resp 16 B/P (MAP) 142/95 (111) Pulse Ox 97 O2 Delivery Room Air Capillary Refill : Progress Note #1: Progress Note will give IVF with dexamethasone, famotidine, benadryl, duoneb. Progress Note #2: Time: 21:24 Progress Note On recheck of the patient he reports it feels like his lip is not as swollen. He continues to have no stridor or wheezing on exam. He reports it feels less swollen and he is anxious to go home. Will give epinephrine 0.3 mg IM and have him continue steroid, H1/H2 blockade at home. Counseled on follow up and return precautions and advised to sleep with head elevated to help limit swelling. Monitor in next 12-24 hours for increased swelling or difficulty swallowing/breathing. If that develops he needs to call 911 or be seen immediately as he may need to be admitted for medicine and allyssa atment. he is anxious to go home and adamant that he is improved enough that he can go. Departure Impression Primary Impression: Allergic reaction to food Qualified Codes: T78.1XXA - Other adverse food reactions, not elsewhere classified, initial encounter Additional Impression: Swelling of upper lip Disposition: 01 HOME, SELF-CARE Condition: Improved Departure-Patient Inst. Decision time for Depature: 21:41 Referrals: SELFDALE MD (PCP/Family) Primary Care Physician Patient Instructions: Allergic Reaction ED Add. Discharge Instructions: Continue steroids to help with swelling. Sleep with your head elevated to help with swelling. Take Pepcid (Famotidine) 20 mg twice a day to help with swelling and allergic reaction. Benadryl (Diphenhydramine) 25 mg take 1-2 pills every 4 hours as needed for swelling and allergic reaction. If you have worsening swelling or trouble swallowing/breathing then call 911 or be seen immediately as you may need to be admitted to a hospital to continue with IV medicine to treat for allergic reaction and swelling. All discharge instructions reviewed with patient and/or family. Voiced understanding. Scripts Prednisone (Prednisone) 20 Mg Tab 40 MG PO DAILY for allergic reaction for 5 Days, #10 TAB 0 Refills Prov: MOSHE GUTIÉRREZ MD 04/01/21 Famotidine (Famotidine) 20 Mg Tablet 20 MG PO BID for allergic reaction for 5 Days, #10 TAB 0 Refills Prov: MOSHE GUTIÉRREZ MD 04/01/21 MOSHE GUTIÉRREZ MD Apr 01, 2021 20:44
[2021-04-01] MEDS ORDERED: EPINEPHrine INJECTION 1 MG/ML AMP IM STA (21:36)
[2021-04-01] MEDS ORDERED: FAMO20TA5 PO (21:41)
[2021-04-01] MEDS ORDERED: PRD20T PO (21:41)
[2021-04-01 21:47] VITALS: BP 133/62
== END 2021-04-01 21:45 | disposition home or self-care (01) ==
LOC: EDUNIT# 20:24 → ER FS 20:26
DX: T78.1XXA Other adverse food reactions, not elsewhere classified, initial encounter (principal); I10 Essential (primary) hypertension; J45.909 Unspecified asthma, uncomplicated; F17.210 Nicotine dependence, cigarettes, uncomplicated; Z79.52 Long term (current) use of systemic steroids

== ENCOUNTER → 2021-12-13 | Outpatient (CLI) | payer BC ==
[~2021-12-13] MED LIST changes: +FAMO20TA5 PO; +PRD20T PO
--- NOTE | 2021-12-13 16:09 | Diagnostic Imaging Report ---
INDICATION: Right knee pain. EXAMINATION: AP, oblique and lateral views of the right knee were obtained. No fracture or acute bony abnormality is seen. There is patellofemoral spurring. There is medial joint space narrowing with osteophyte formation. There is a questionable small joint effusion. IMPRESSION: Degenerative findings in the right knee with no acute abnormality. Dictated by: Dictated on workstation # [id number]
== END ==
LOC: RAD FS 15:45
PROVIDERS: ATTEND Nurse Practitioner Family
DX: M17.11 Unilateral primary osteoarthritis, right knee (principal)
CPT/HCPCS: 73562

== ENCOUNTER 2022-05-02 06:47 | Outpatient (CLI) | payer BC ==
[~2022-05-02] VITALS: Ht 172.7 cm; Wt 68.0 kg
== END 2022-05-02 11:55 | disposition home or self-care (01) ==
LOC: PREOP 06:47
PROVIDERS: ATTEND Surgery
DX: Z01.818 Encounter for other preprocedural examination (principal)

== ENCOUNTER 2022-05-10 07:18 | Day surgery (SDC) | payer BC ==
[~2022-05-10] VITALS: Ht 172.7 cm; Wt 68.0 kg
[2022-05-10] MEDS ORDERED: LACTATED RINGERS 1,000 ML IV STA (07:26)
[2022-05-10 07:30] VITALS: BP 153/93
[2022-05-10] MEDS ORDERED: HYDR25TA4 PO (07:33)
[2022-05-10] MEDS ORDERED: MULT-1056 PO (07:33)
[2022-05-10] MEDS ORDERED: LISI10TA25 PO (07:33)
[2022-05-10] MEDS ORDERED: MONT-40 PO (07:33)
[2022-05-10] MEDS ORDERED: DILT120C85 PO (07:33)
[2022-05-10] MEDS ORDERED: MELO15TA39 PO (07:33)
[2022-05-10] MEDS ORDERED: PROPOFOL INJECTION 50 ML IV ONE (08:10)
[2022-05-10] MEDS ORDERED: MIDAZOLAM 2 MG/2 ML (VERSED) VIAL ONE (08:10)
--- NOTE | 2022-05-10 08:21 | Progress Note-Pre Operative ---
Pre-Operative Progress Note H&P Reviewed The H&P was reviewed, patient examined and no changes noted. Time Seen by Provider: 08:13 Date H&P Reviewed: May 10, 2022 Time H&P Reviewed: 08:13 Pre-Operative Diagnosis: Screening Colonoscopy ESTELLE ARMANDO DO May 10, 2022 08:21
[2022-05-10 09:12] VITALS: BP 126/75
[2022-05-10 09:17] VITALS: BP 152/91
[2022-05-10 09:20] VITALS: BP 157/96
[2022-05-10 09:44] VITALS: BP 157/96
--- NOTE | 2022-05-10 09:44 | Progress Note-Post Operative ---
Post-Operative Progess Note Surgeon (s)/Vp Account Director (s) Surgeon ESTELLE ARMANDO DO Vp Account Director: YARELIS Daniel Pre-Operative Diagnosis Screening Colonoscopy Post-Operative Diagnosis polyp diverticula int hemorrhoids Procedure & Operative Findings Date of Procedure 05/10/22 Procedure Performed/Findings Colon with cold bx PROCEDURE NOTE: After informed consent was obtained, the patient was brought to the endoscopy suite, placed in bed in left lateral decubitus position. He was administered IV sedation by the INFANTRY UNIT LEADER who then monitored his vitals the entire time, heart rate, blood pressure and pulse ox and the scope was inserted, pushed all the way to about 150 cm and pushed into the cecum, took a picture of appendiceal orifice and then slowly withdrew the scope insufflating to look circumferentially at the nunez starting in the cecum, up the ascending colon to the hepatic flexure, then down the transverse colon, splenic flexure, into the descending colon down in the sigmoid and then into the recum. Saw a small polyp and did a cold biopsy. Retroflexed the scope and took a picture of the internal hemorrhoids. The patient tolerated the procedure. He was recovered in endoscopy suite. Recommended for repeat colonoscopy in 5 years. Anesthesia Type IV sedation by INFANTRY UNIT LEADER Estimated Blood Loss Estimated blood loss (mL): scant Specimens/Packing Specimens Removed rectal polyp ESTELLE ARMANDO DO May 10, 2022 09:44
--- NOTE | 2022-05-10 09:45 | Endoscopy Discharge Instruct ---
Endo Procedure/Findings Findings 1.: Polyp 2.: Diverticulosis 3.: Internal Hemorrhoids Discharge Instructions - Activity: You might feel a little sleepy until tomorrow. This is due to the medicine you received to relax you. Until tomorrow, you should: NOT drive a car, operate machinery or power tools. NOT drink any alcoholic beverages. NOT make any important decisions or sign importortant papers. Do not return to work until tomorrow, unless otherwise instructed. Resume previous activities tomorrow. Diet: Start by taking liquids. If you tolerate liquids, advance to solid food. 1.: Colonscopy in 5 years Notify Physician - If you experience excessive bleeding, unusual abdominal pain, fever, or chest pain, contact your doctor immediately. ESTELLE ARMANDO DO May 10, 2022 09:45
--- NOTE | 2022-05-10 14:38 | Anesthesia-General Post-Op ---
MAC Patient Condition Mental Status/LOC: Same as Preop Cardiovascular: Satisfactory Nausea/Vomiting: Absent Respiratory: Satisfactory Pain: Controlled Complications: Absent Post Op Complications Complications None Follow Up Care/Instructions Patient Instructions None needed. Anesthesiology Discharge Order Discharge Order Patient is doing well, no complaints, stable vital signs, no apparent adverse anesthesia problems. No complications reported per nursing. JACQUIE HAYES CRNA May 10, 2022 14:38
== END 2022-05-10 09:53 | disposition home or self-care (01) ==
LOC: SDC 07:18 → ENDO 09:53
PROVIDERS: ATTEND Surgery
DX: K57.30 Diverticulosis of large intestine without perforation or abscess without bleeding (principal); K63.5 Polyp of colon; K64.8 Other hemorrhoids
CPT/HCPCS: 88305

== ENCOUNTER 2022-11-21 08:31 | Outpatient (CLI) | payer BC ==
[~2022-11-21] VITALS: Ht 172.7 cm; Wt 72.7 kg
[~2022-11-21 08:31] MED LIST changes: +DILT120C85 PO; +HYDR25TA4 PO; +LISI10TA25 PO; +MELO15TA39 PO; +MONT-40 PO; +MULT-1056 PO
[2022-11-21] MEDS ORDERED: RT-ALBUINH INH (08:50)
[2022-11-21] MEDS ORDERED: ALB0.5V INH (08:50)
[2022-11-21 10:15] VITALS: BP 131/85
[2022-11-21 11:03] LABS: BASOPHILS # (AUTO) 0.1 10^3/uL (0.0-0.1); BASOPHILS % (AUTO) 1 % (0-10); BILIRUBIN,URINE NEGATIVE (NEGATIVE); CLARITY,URINE CLEAR; COLOR,URINE YELLOW; EOSINOPHILS # (AUTO) 0.3 10^3/uL (0.0-0.3); EOSINOPHILS % (AUTO) 3 % (0-10); GLUCOSE, URINE (UA) NEGATIVE (NEGATIVE); HEMATOCRIT 37 % (40-54); HEMOGLOBIN 12.6 g/dL (13.3-17.7); KETONES,URINE NEGATIVE (NEGATIVE); LEUKOCYTE ESTERASE ,URINE NEGATIVE (NEGATIVE); LYMPHOCYTES # (AUTO) 1.3 10^3/uL (1.0-4.0); LYMPHOCYTES % (AUTO) 14 % (12-44); MEAN CORPUSCULAR HEMOGLOBIN 31 pg (25-34); MEAN CORPUSCULAR HGB CONC 34 g/dL (32-36); MEAN CORPUSCULAR VOLUME 92 fL (80-99); MEAN PLATELET VOLUME 10.3 fL (9.0-12.2); MONOCYTES # (AUTO) 0.9 10^3/uL (0.0-1.0); MONOCYTES % (AUTO) 10 % (0-12); NEUTROPHILS # (AUTO) 6.8 10^3/uL (1.8-7.8); NEUTROPHILS % (AUTO) 73 % (42-75); NITRITE,URINE NEGATIVE (NEGATIVE); PLATELET COUNT 232 10^3/uL (130-400); PROTEIN,URINE NEGATIVE (NEGATIVE); WHITE BLOOD COUNT 9.4 10^3/uL (4.3-11.0)
[2022-11-21 11:11] LABS: BACTERIA,URINE NEGATIVE /HPF; SQUAMOUS EPITHELIAL CELL,UR RARE /HPF
[2022-11-21 11:14] LABS: INR 0.9 (0.8-1.4); PROTHROMBIN TIME PATIENT 12.7 SEC (12.2-14.7)
[2022-11-21 11:20] LABS: ALBUMIN 4.4 GM/DL (3.2-4.5); BILIRUBIN,TOTAL 0.7 MG/DL (0.1-1.0); CALCIUM 9.4 MG/DL (8.5-10.1); CREATININE SERUM 1.14 MG/DL (0.60-1.30); POTASSIUM 3.8 MMOL/L (3.6-5.0); TOTAL PROTEIN 7.3 GM/DL (6.4-8.2)
[2022-11-21 11:27] LABS: ERYTHROCYTE SEDIMENTATION RATE 6 MM/HR (0-30)
--- NOTE | 2022-11-21 11:40 | Diagnostic Imaging Report ---
INDICATION: RIGHT KNEE OSTEOARTHRITIS PRE OP. TECHNIQUE: Two view chest 11:09 AM CORRELATION STUDY: 12/31/2019 FINDINGS: The heart size and pulmonary vasculature are within normal limits. The lungs are perhaps slightly hyperinflated. However, lungs are clear with no consolidating infiltrate. There is no significant pleural effusion or pneumothorax. Visualized osseous structures are unremarkable. IMPRESSION: 1. Negative for acute abnormality of the chest. Dictated by: Dictated on workstation # [id number]
--- NOTE | 2022-11-21 11:45 | Physical Therapy Pre-Op Eval ---
PT Pre-Surgical Assessment Type of Surgery Type of Surgery: (R) total knee replacement scheduled for 11/28/22 Prior Level of Function Current Living Status: Spouse Locomotion (Upon Admit): Independent Distance: community distances PLOF DME: None Subjective Home: Single Level Current Living Status: Spouse Entry Into Home: Stairs Without Railing Steps Into Home: 3 Steps Accessories: No Railing Motor Control Motor Control: Motor Control WNL ROM ROM: WFL, except focal deficit right knee 5-120 degrees Strength (L) LE strength 5/5, (R) knee 4+/5 quads and hamstrings Transfers Transfers (B, C, W/C) (FIM): 7 Gait Gait (FIM): 7 Gait Distance (FIM): 7 Distance: 1000 Gait Assistive Device: None Right Lower Extremity: Right Full Weight Bearing Left Lower Extremity: Left Full Weight Bearing Pt educated on right knee ROM and strength exercises to be performed prior to surgery. Treatment Rendered Treatment: Patient instructed in assistive device, supported ambulation. Patient instructed in and given written program of ROM and strengthening exercises to be preformed post-op. Patient instructed in movement precautions where applicable. Patient demonstrates understandings of post-operative therapy protocol including gait pattern and exercise program. Pre-operative instruction completed; await physical therapy orders after surgery. Treatment Goal Met: Yes Assessment Goals Acheived: I Ambulation w/ FWW, Understands P-op Precaut, I Post-op Exercises Charges/GCodes Time In: 1030 Time Out: 1045 Total Billed Treatment Time: 15 Total Billed Treatment visit, education 15 minutes G Codes Necessary: No MYCHAL SHAH PT Nov 21, 2022 11:45
== END 2022-11-21 14:55 ==
LOC: PREOP 08:31
PROVIDERS: ATTEND Orthopaedic Surgery
DX: Z01.818 Encounter for other preprocedural examination (principal); M17.11 Unilateral primary osteoarthritis, right knee
CPT/HCPCS: 36415; 71046; 80053; 81000; 85025; 85610; 85652; 86850; 86900; 86901; 87081; 93005

== ENCOUNTER 2022-11-28 05:50 | Inpatient (IN) | payer BC ==
--- NOTE | 2022-11-20 07:36 | HISTORY AND PHYSICAL ---
DATE OF SERVICE: 11/28/2022 ADMISSION HISTORY AND PHYSICAL This will be for inpatient admission on 11/28/2022 for right total knee arthroplasty. The patient will require regular inpatient admission due to pain management, need for physical therapy and gait abnormalities. HISTORY OF PRESENT ILLNESS: The patient is a 57-year-old gentleman with progressively worsening right knee pain. 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 Radiographs reveal severe medial and patellofemoral arthrosis with complete loss of joint space. He has undergone treatment with injections, which only provide temporary relief of his symptoms due to functional impairment and failure to improve with conservative measures, the patient elected to proceed with surgical intervention. REVIEW OF SYSTEMS: No chest pain, no shortness of breath. No dysuria. PAST MEDICAL HISTORY: Migraines, hypertension, reactive airway disease. PAST SURGICAL HISTORY: Right long finger partial amputation. FAMILY HISTORY: Significant for hypertension, asthma and migraines. PRIMARY CARE PROVIDER: [facility]. MEDICATIONS: Albuterol, hydrochlorothiazide, lisinopril, meloxicam and Singulair. ALLERGIES: PENICILLIN AND SEAFOOD. SOCIAL HISTORY: The patient denies tobacco and alcohol use. PHYSICAL EXAMINATION: GENERAL: The patient is well-developed, well-nourished, in no acute distress. HEENT: Normocephalic, atraumatic. Pupils are equal, round, reactive to light. Oropharynx is clear. NECK: Supple. No lymphadenopathy. LUNGS: Clear to auscultation bilaterally. HEART: Regular rate and rhythm. ABDOMEN: Soft, nontender, nondistended. EXTREMITIES: Examination of the right knee demonstrates varus alignment. He is tender along the medial femoral condyle. He has pain medially with Ronald's. There is a slight effusion. No erythema or warmth. He ambulates with an antalgic gait. His range of motion actively 0/2/130. IMPRESSION: Severe right knee osteoarthritis, unresponsive to conservative measures. PLAN: Right total knee arthroplasty. The risks, benefits, options, ramifications and recovery have been discussed at length with the patient. He understands and wishes to proceed and inpatient admission on 11/28/2022. Job ID: [id number] DocumentID: [id number] Dictated Date: 11/16/2022 09:26:06 Hand Drawer In Date: 11/16/2022 10:20:00 Dictated By: ADONIS PLASCENCIA MD
[2022-11-28] VITALS (13 sets, daily range): BP systolic 122–181; BP diastolic 51–111
[~2022-11-28] VITALS: Ht 172.7 cm; Wt 68.3 kg
[~2022-11-28 05:50] MED LIST changes: +ALB0.5V INH; +RT-ALBUINH INH
[2022-11-28] MEDS ORDERED: MIDAZOLAM 2 MG/2 ML (VERSED) VIAL ONE (06:46)
[2022-11-28] MEDS ORDERED: fentaNYL INJ 100 MCG/2 ML AMP ONE ×2 (06:46→09:41)
[2022-11-28] MEDS ORDERED: ROPIVACAINE 5MG/ML 30ML VIAL ONE (06:49)
[2022-11-28] MEDS ORDERED: LIDOCAINE PF 2% 5 ML (XYLOCAINE) VIAL ONE ×2 (06:53→07:13)
[2022-11-28] MEDS: LACTATED RINGERS 1,000 ML IV PRN ×2 (06:58→07:40)
[2022-11-28] MEDS ORDERED: CEFUROXIME INJECTION 1,500 MG in NS (IVPB) 50 ML IV ONE (07:00)
[2022-11-28] MEDS ORDERED: OXYC1TAB11 PO (07:04)
[2022-11-28] MEDS ORDERED: proPOfol 200 MG/20 ML (DIPRIVAN) VIAL IV ONE (07:13)
[2022-11-28] MEDS ORDERED: ONDANSETRON 4 MG/2 ML (SDV) Z0FRAN ONE (07:13)
[2022-11-28] MEDS ORDERED: SEVOFLURANE (ULTANE) 15 ML INHAL SOLN ONE ×2 (07:13→08:22)
[2022-11-28] MEDS ORDERED: NALOXONE 0.4 MG/ML 1 ML (NARCAN) VIAL IV PRN (07:15)
[2022-11-28] MEDS ORDERED: morphine PCA 100 MG/100 ML BAG IV PRN (07:15)
[2022-11-28] MEDS ORDERED: diphenhydrAMINE 50 MG/ML INJ (BENADRYL) IVP PRN (07:15)
[2022-11-28] MEDS ORDERED: ONDANSETRON 4 MG/2 ML (SDV) Z0FRAN IVP PRN ×2 (07:15→09:30)
[2022-11-28] MEDS ORDERED: CLINDAMYCIN 900 MG/50 ML IVPB 50 ML IV ONE ×2 (07:23→07:30)
--- NOTE | 2022-11-28 07:34 | Progress Note-Pre Operative ---
Pre-Operative Progress Note Date of Available H&P: Nov 16, 2022 Date H&P Reviewed: Nov 28, 2022 Time H&P Reviewed: 07:11 Changes from last HP none Pre-Operative Diagnosis: right knee promary osteoarthritis ADONIS PLASCENCIA MD Nov 28, 2022 07:34
--- NOTE | 2022-11-28 07:35 | Progress Note-Post Operative ---
Post-Operative Progess Note Surgeon (s)/Insurance Follow Up Rep (s) Surgeon ADOINS PLASCENCIA MD Insurance Follow Up Rep: Torres Gillis Pre-Operative Diagnosis right knee primary osteoarthritis Post-Operative Diagnosis right knee primary osteoarthritis Procedure & Operative Findings Date of Procedure 11/28/22 Procedure Performed/Findings right total knee arthroplasty Anesthesia Type GETA Estimated Blood Loss Estimated blood loss (mL): minimal Specimens/Packing Specimens Removed none Packing: none ADONIS PLASCENCIA MD Nov 28, 2022 07:35
--- NOTE | 2022-11-28 07:38 | D/C HH Face to Face Order ---
D/C Face to Face Orders Reconcile Patient Problems Problems Reviewed?: Yes Instructions for Patient Via [facility], Patient Instructions/FollowUp: three weeks Physician to follow Patient: three weeks Discharge Diet for Home: Regular Diet Patient Data-Allergies,Ht & Wt Patient Allergies: Coded Allergies: Penicillins (Verified Allergy, Severe, BREATHING ISSUES, 11/28/22) shellfish derived (Verified Allergy, Severe, BREATHING ISSUE, 11/28/22) Height (Feet): 5 Height (Inches): 8.00 Weight (Pounds): 156 Home Health Need/Face to Face Date of Face to Face: Nov 28, 2022 Clinical Findings: Muscle weakness, Pain with ambulation, Unsteady gait I have seen Pt eloi-aw-dbam: Yes Discharged To: Home Diagnosis/Conditions: right total knee arthroplasty Patient is Homebound due to: Muscle weakness, Pain w/ambulation Homebound Status Due to the above stated illness, injury or surgical procedure (medical condition or diagnosis) and associated clinical findings, the patient is homebound because of his/her inability to leave home except with aid of a supportive device and/or person AND leaving the home requires a considerable and taxing effort or is medically contraindicated. Pt req the following assistanc: Walker [facility] Nursing Orders Home Health Services Order: Physical Therapy-Evaluate & Treat DC right knee johanna and apply steri strips 12/12/22 Home Health Infusion Therapy Line Start Date: Nov 28, 2022 Therapy Orders Therapy Orders: Physical Therapy, PT to assess for OT Therapy Specific Orders: Eval assistive deivces, Teach enviro modifications/safety, Gait training, Increase strength/endurance, Provider maintenance therapy, Restore ROM Certify Stmt I certify that this patient is under my care and that I, a nurse practitioner or a physician; a neurosurgical physician assistant working with me, had a face to face encounter that - meets the physician face to face encounter requirements with this patient as dated. ADONIS PLASCENCIA MD Nov 28, 2022 07:38
[2022-11-28] MEDS ORDERED: TRANEXAMIC ACID 100 MG/ML 10 ML INJECTION ONE (07:57)
[2022-11-28] MEDS ORDERED: INTRA-ARTICULAR IU ONE ×5 (08:00)
[2022-11-28] MEDS ORDERED: morphine INJ 10 MG/ML 1ML (SYR OR VIAL) ONE (09:25)
[2022-11-28] MEDS ORDERED: MEPERIDINE (DEMEROL) INJ 50 MG/ML IVP ONE (09:30)
[2022-11-28] MEDS ORDERED: fentaNYL INJ 100 MCG/2 ML AMP IVP ONE (09:30)
[2022-11-28] MEDS ORDERED: morphine INJ 10 MG/ML 1ML (SYR OR VIAL) IVP ONE (09:30)
--- NOTE | 2022-11-28 10:02 | Progress Note ---
Standard Progress Note Progress Notes/Assess & Plan Date Seen by a Provider: Nov 28, 2022 Time Seen by a Provider: 09:30 Progress/Assessment & Plan post op check no complaints radiographs--HW well positioned without fracture RLE--2 plus DP pulse with brisk cap refill intact DF and PF of toes and ankle sensation intact to light touch throughout s/p RTKA mobilize as able ADONIS PLASCENCIA MD Nov 28, 2022 10:02
[2022-11-28] MEDS: NS IV 1000 ML 1,000 ML IV SCH ×2 (10:55→22:49)
--- NOTE | 2022-11-28 11:02 | Diagnostic Imaging Report ---
INDICATION: Postop right knee replacement. AP and lateral views of the right knee are obtained. Right knee prosthesis appears in good alignment. There is no sign of fracture or device loosening. There is no unexpected radiopaque foreign body post surgery. IMPRESSION: Well aligned right knee prosthesis with no unexpected radiopaque foreign body post surgery. Dictated by: Dictated on workstation # [id number]
[2022-11-28] MEDS: SENNA W/DOCUSATE (SENOKOT S) TABLET PO SCH ×2 (11:26→22:47)
[2022-11-28] MEDS ORDERED: cloNIDine 0.1 MG (CATAPRES) TAB PO PRN (11:30)
[2022-11-28] MEDS ORDERED: amLODIPine 5 MG (NORVASC) TAB PO NR (11:30)
--- NOTE | 2022-11-28 11:31 | Consultation - Hospitalist ---
HPI History of Present Illness: HPI/Chief Complaint CC: Med management following RTKA POD # 0 HPI: This is a 57 yoWM clinic patient of [facility] who has a h/o HTN and is s/p uncomplicated RTKA by Dr Mesa. Currently his family is at the bedside and his pain is controlled. BP has been elevated so initiated additional meds and will restart his home meds. No CP or SOB. Source: patient, family Exam Limitations: no limitations Date Seen 11/28/22 Attending Physician [facility] PCP Admitting Physician: Bennie Mesa MD Attending Physician: Bennie Mesa MD Referring Physician Date of Admission Nov 28, 2022 at 05:50 Home Medications & Allergies Home Medications Reviewed patient Home Medication Reconciliation performed by pharmacy medication reconciliations clinical office technician and/or nursing. Patients Allergies have been reviewed. Allergies Allergies Coded Allergies Penicillins (Verified Allergy, Severe, BREATHING ISSUES, 11/28/22) shellfish derived (Verified Allergy, Severe, BREATHING ISSUE, 11/28/22) Past Lilrekw-Skvrci-Ncbnfa Hx Patient Social History Marrital Status: Employed/Student: employed Tobacco Use?: No Smoking Status: Former Smoker Substance use?: No Alcohol Use?: Yes Alcohol type: Beer Alcohol Frequency: Couple times a week Pt feels they are or have been: No Immunizations Up To Date First/Initial COVID19 Vaccinat: 01/03/21 Second COVID19 Vaccination Wei: 01/31/21 Seasonal Allergies Seasonal Allergies: Yes Current Status Advance Directives: No Communicates: Verbally Primary Language: Bhutanese Preferred Spoken Language: Bhutanese Is interpretation needed?: No Implanted or Applied Medical D: None Past Medical History Surgeries: Orthopedic Asthma Currently Using CPAP: No Currently Using BIPAP: No Hypertension Headaches /Migraines Polyps Arthritis Blood Disorders: No Review of Systems Constitutional: see HPI Respiratory: no symptoms reported Cardiovascular: no symptoms reported Musculoskeletal: joint pain Physical Exam Physical Exam Vital Signs Vital Signs - First Documented 11/28/22 06:30 Temp 36.8 Pulse 80 Resp 16 B/P (MAP) 150/99 (116) Pulse Ox 98 O2 Delivery Room Air Capillary Refill : Less Than 3 Seconds Height, Weight, BMI Height: 5'8.00" Weight: 156lbs. oz. [age]yo; 22.90 BMI Method:Stated General Appearance: No Apparent Distress, WD/WN, Chronically ill Eyes: Bilateral Eye Normal Inspection, Bilateral Eye PERRL HEENT: PERRL/EOMI, Normal ENT Inspection, Pharynx Normal Neck: Full Range of Motion, Normal Inspection, Non Tender, Supple, Carotid Bruit Respiratory: Chest Non Tender, Lungs Clear, Normal Breath Sounds, No Accessory Muscle Use, No Respiratory Distress Cardiovascular: Regular Rate, Rhythm, No Edema, No Gallop, No JVD, No Murmur, Normal Peripheral Pulses Gastrointestinal: Normal Bowel Sounds, No Organomegaly, No Pulsatile Mass, Non Tender, Soft Back: Normal Inspection, No CVA Tenderness, No Vertebral Tenderness Extremity: Normal Capillary Refill, Normal Inspection, Normal Range of Motion (except right leg), Non Tender, No Calf Tenderness, No Pedal Edema Neurologic/Psychiatric: Alert, Oriented x3, No Motor/Sensory Deficits, Normal Mood/Affect Skin: Normal Color, Warm/Dry Lymphatic: No Adenopathy Results Results/Procedures Labs Patient resulted labs reviewed. Assessment/Plan Assessment and Plan Assess & Plan/Chief Complaint Assessment: s/p RTKA HTN OOC currently Former smoker Plan: HTN control Pain control IS PT VIVIANE PALMA DO Nov 28, 2022 11:31
[2022-11-28] MEDS ORDERED: ZINC50TA11 PO (11:40)
--- NOTE | 2022-11-28 13:32 | Physical Therapy Evaluation ---
PT Evaluation-General Medical Diagnosis Admission Date Nov 28, 2022 at 05:50 Medical Diagnosis: right TKA Onset Date: Nov 28, 2022 Therapy Diagnosis Therapy Diagnosis: impaired mobility, ROM Height/Weight Height (Feet): 5 Height (Inches): 8.00 Weight (Pounds): 156 Referral Physician: Carlin Reason for Referral: Evaluation/Treatment Medical History Additional Medical History PAST MEDICAL HISTORY: Migraines, hypertension, reactive airway disease. PAST SURGICAL HISTORY: Right long finger partial amputation. Reviewed History: Yes Social History Home: Single Level Current Living Status: Spouse Entry Into Home: Stairs With Railing PT Steps Into Home: 4 Prior Prior Level of Function SCALE: Activities may be completed with or without assistive devices. 3-Srnehapnab-vgevztm completes the activity by him/herself with no assistance from a helper. 5-Set-up or Clean-up Assistance-helper sets up or cleans up; patient completes activity. [place] assists only prior to or following the activity. 4-Supervision or Touching Assistance-helper provides verbal cues and/or touching/steadying and/or contact guard assistance as patient completes activity. Assistance may be provided throughout the activity or intermittently. 3-Partial/Moderate Assistance-helper does LESS THAN HALF the effort. [place] lifts, holds or supports trunk or limbs, but provides less than half the effort. 2-Substantial/Maximal Assistance-helper does MORE THAN HALF the effort. [place] lifts or holds trunk or limbs and provides more than half the effort. 9-Dyjzemtrn-hbdpqc does ALL the effort. Patient does none of the effort to complete the activity. Or, the assistance of 2 or more helpers is required for the patient to complete the activity. If activity was not attempted, code reason: 7-Patient Refused. 9-Not Applicable-not attempted and the patient did not perform the activity before the current illness, exacerbation or injury. 10-Not Attempted due to Environmental Limitations-(lack of equipment, weather restraints, etc.). 88-Not Attempted due to Medical Conditions or Safety Concerns. Bed Mobility: 4 Transfers (B,C,W/C): 4 Gait: 4 Stairs: 4 Indoor Mobility (Ambulation): Independent Stairs: Independent PT Evaluation-Current Subjective Patient in bed pre tx, agrees to PT, has no pain at rest. Pt/Family Goals to be independent at home Objective Patient Orientation: Person, Place, Situation Attachments: IV ROM/Strength ROM Lower Extremities right knee has full extension, flexion 80 degrees Sensory Vision: Wears Glasses Hearing: Functional Sensation Right Lower Extremit: Intact Sensation Left Lower Extremity: Intact Transfers Roll Left to Right (QC): 4 (SBA) Sit to Lying (QC): 4 (SBA) Lying to Sitting/Side of Bed(Q: 4 (SBA) Sit to Stand (QC): 4 (CGA) Chair/Lxb-jk-Oswqw Xfer(QC): 4 (CGA) Gait Walk 10 feet (QC): 4 Walk 50 ft with 2 Turns(QC): 4 Walk 150 ft (QC): 4 Distance: 150' Gait Assistive Device: FWW Comments/Gait Description CGA, slow but steady ambulation, good step through and heel strike Balance Sitting Static: Normal Sitting Dynamic: Normal Standing Static: Good Standing Dynamic: Good Treatment RLE TKA protocol x10 (MARKO, QS, HS, SAQ, SLR) Assessment/Needs Patient in bed post tx with nurse call, phone, tray, all needs met. Patient has impaired mobility, strength, ROM. CGA for transfers and ambulation. Rehab Potential: Fair PT [place] Goals [place] Goals PT [place] Goals Time Frame: Dec 05, 2022 Roll Left & Right (QC): 6 Sit to Lying (QC): 6 Lying-Sitting on Side/Bed(QC): 6 Sit to Stand (QC): 6 Chair/Eaz-cu-Wsyzc Xfer(QC): 6 Walk 10 feet (QC): 6 Walk 50ft with 2 Turns (QC): 6 Walk 150 ft (QC): 6 1 Step (curb) (QC): 4 4 Steps (QC): 4 PT Plan Problem List Problem List: Activity Tolerance, Functional Strength, Safety, Balance, Gait, Transfer, Bed Mobility, ROM Treatment/Plan Treatment Plan: Continue Plan of Care Treatment Plan: Bed Mobility, Education, Functional Activity Eran, Functional Strength, Gait, Safety, Therapeutic Exercise, Transfers Treatment Duration: Dec 05, 2022 Frequency: 11 times per week Estimated Hrs Per Day: .25 hour per day Patient and/or Family Agrees t: Yes Safety Risks/Education Patient Education: Gait Training, Transfer Techniques, Correct Positioning, Safety Issues Teaching Recipient: Patient Teaching Methods: Demonstration, Discussion Response to Teaching: Reinforcement Needed Discharge Recommendations Plan Patient will perform bed mobility and transfer training, balance and endurance training, functional strengthening, stair training, gait training, and education, to improve functional mobility and independence at home. Therapy Discharge Recommendati: Home & Family, Post Acute PT Time Time In: 1304 Time Out: 1318 DATE: Nov 28, 2022 Total Billed Treatment Time: 14 Total Billed Treatment 1 visit EVL 14' DESIRE CARTAGENA PT Nov 28, 2022 13:32
--- NOTE | 2022-11-28 14:08 | OPERATIVE REPORT ---
DATE OF SERVICE: 11/28/2022 PREOPERATIVE DIAGNOSIS:. Right knee primary osteoarthritis. POSTOPERATIVE DIAGNOSIS: Right knee primary osteoarthritis. PROCEDURE: Right total knee arthroplasty. SURGEON: Bennie Plascencia MD SPINNING SUPERVISOR: Torres Gillis, who assisted throughout the procedure and closed the incision. ANESTHESIA: General endotracheal by Torres Rueda CRNA. TOURNIQUET TIME: Approximately 65 minutes at 300 mmHg. ESTIMATED BLOOD LOSS: Minimal. DRAINS: None. COMPLICATIONS: None. POSTOPERATIVE PLAN: Routine total knee arthroplasty protocol. MATERIALS: MicroPort cemented size 5 femur, cemented size 5 tibia with 10 mm insert and cemented size 32 patellar button. STATEMENT OF MEDICAL NECESSITY: The patient is a 57-year-old gentleman with longstanding progressive right knee pain. Radiographs revealed severe medial and patellofemoral arthrosis. He had tried rest, activity modifications and anti-inflammatories without relief. Due to functional impairment and failure to improve with conservative measures, the patient elected to proceed with surgical intervention. DESCRIPTION OF PROCEDURE: After risks and benefits of the procedure were discussed and questions were answered and informed consent was signed and placed on chart, operative site was confirmed in the preoperative holding area, initialed by surgeon. The patient was then transported to the operating room and after adequate levels of general endotracheal anesthetic were obtained, a timeout was called, confirming the operative site. An examination under anesthesia was performed. The right lower extremity was then prepped and draped in the usual sterile fashion with the knee elevated and flexed. The tourniquet was inflated to 300 mmHg. A standard anterior approach was utilized. Hemostasis was obtained with cautery. A medial parapatellar arthrotomy was performed, leaving 1 cm cuff on the patella for later reattachment. A subperiosteal release was performed and the proximal medial tibia being careful stay on the bony surface. The ACL was resected and the intramedullary guide was passed into the femur. The distal cutting block was placed and distal cut was made, the femur, sized to a size 5. The 5 cutting block was placed parallel to the epicondylar axis and cuts were made from posterior to anterior. Subperiosteal release was then carefully performed on the posterior distal femur, being careful to stay on the bony surface. Intramedullary guide was then passed into the tibia. The cutting block was placed. A drop tracy transected the intermalleolar axis and the cut was made. The 5 baseplate was pinned into position. It was felt that it was tight in flexion and extension, therefore, an additional 2 mm was resected off of the tibia. The 5 baseplate was placed and had excellent coverage. This was prepared with the drill and keel punch after ensuring that the drop tracy transected the intermalleolar axis. The femoral trial was placed and the trochlear cut was made. The patella was then prepared by resecting 10 mm off the undersurface using the freehand technique. The peg guide was placed and peg holes were drilled. The trials were inserted with 10 mm insert, full extension was easily obtained under 20 degrees of flexion with gravity was easily obtained. There was no anterior/posterior or medial/lateral laxity in flexion or extension. The trials were removed. The joint was irrigated with pulse lavage. Periarticular block was placed in the posterior capsule, medial and lateral retinaculum extensor mechanism and subcutaneous tissues. The bone ends were irrigated and dried and the tibial baseplate was cemented into position. Excessive cement was removed. Superior surface was irrigated and dried and the polyethylene insert was placed. The distal femur was irrigated and dried and the femoral prosthesis was cemented into position. Excessive cement was removed. The knee was brought out into full extension until the cement had cured. The undersurface of the patella was irrigated and dried and the patellar button was cemented into position. This was held until the cement cured. Once cement cured, the knee was taken through range of motion. Full extension was easily obtained, 120 degrees of flexion with gravity was easily obtained. There is no anterior/posterior or medial/lateral laxity in flexion or extension. The patella tracked well. The joint was further irrigated with pulse lavage. The arthrotomy was closed with #2 Tevdek in lmqmyi-cy-lksyy interrupted fashion. The knee was flexed. The repair was stable. The subcutaneous tissues were irrigated and dried using a total of 6 liters throughout the procedure. 0 Vicryl was used in the deep subcutaneous layer, 2-0 Vicryl for the superficial subcutaneous layer, johanna used on the skin. A soft dressing was applied. The tourniquet was deflated and the patient was transferred to recovery room awake and in stable condition. Job ID: [id number] DocumentID: [id number] Dictated Date: 11/28/2022 09:19:28 Instructor Modeling Date: 11/28/2022 14:06:00 Dictated By: BENNIE PLASCENCIA MD
[2022-11-28] MEDS: CLINDAMYCIN 900 MG/50 ML IVPB 50 ML IV SCH ×2 (14:48→22:47)
[2022-11-28] MEDS ORDERED: CEFUROXIME INJECTION 750 MG in NS (IVPB) 50 ML IV SCH (15:15)
[2022-11-28] MEDS: oxyCODONE/APAP 5/325MG (PERCOCET 5) TABLET PO PRN (22:47)
[2022-11-29] MEDS: oxyCODONE/APAP 5/325MG (PERCOCET 5) TABLET PO PRN ×9 (03:01→23:22)
[2022-11-29 03:04] VITALS: BP 115/78
[2022-11-29] MEDS ORDERED: RT-ALBUTEROL SULF 2.5 MG/3 ML PRE-MIX VIAL INH PRN (04:45)
[2022-11-29 05:54] LABS: BASOPHILS % (AUTO) 0 % (0-10); EOSINOPHILS # (AUTO) 0.3 10^3/uL (0.0-0.3); EOSINOPHILS % (AUTO) 3 % (0-10); HEMATOCRIT 28 % (40-54); HEMOGLOBIN 9.4 g/dL (13.3-17.7); LYMPHOCYTES # (AUTO) 2.1 10^3/uL (1.0-4.0); LYMPHOCYTES % (AUTO) 19 % (12-44); MEAN CORPUSCULAR HEMOGLOBIN 31 pg (25-34); MEAN CORPUSCULAR HGB CONC 34 g/dL (32-36); MEAN CORPUSCULAR VOLUME 94 fL (80-99); MEAN PLATELET VOLUME 10.5 fL (9.0-12.2); MONOCYTES # (AUTO) 1.5 10^3/uL (0.0-1.0); MONOCYTES % (AUTO) 13 % (0-12); NEUTROPHILS # (AUTO) 7.1 10^3/uL (1.8-7.8); NEUTROPHILS % (AUTO) 64 % (42-75); PLATELET COUNT 178 10^3/uL (130-400); WHITE BLOOD COUNT 11.2 10^3/uL (4.3-11.0)
--- NOTE | 2022-11-29 06:05 | Progress Note - Hospitalist ---
Subjective HPI/CC On Admission Date Seen by Provider: Nov 29, 2022 Time Seen by Provider: 11:00 CC: Med management following RTKA POD # 0 HPI: This is a 57 yoWM clinic patient of [facility] who has a h/o HTN and is s/p uncomplicated RTKA by Dr Mesa. Currently his family is at the bedside and his pain is controlled. BP has been elevated so initiated additional meds and will restart his home meds. No CP or SOB. Subjective/Events-last exam Doing well Labs reviewed No BM yet Using IS Review of Systems Musculoskeletal: leg pain Objective Exam Vital Signs Vital Signs Date Time Temp Pulse Resp B/P (MAP) Pulse Ox O2 Delivery O2 Flow Rate FiO2 11/30/22 03:18 37.6 106 16 158/80 (106) 95 Nasal Cannula 11/28/22 09:50 10 Capillary Refill : Less Than 3 Seconds General Appearance: No Apparent Distress, WD/WN, Chronically ill Respiratory: Lungs Clear, Normal Breath Sounds Cardiovascular: Regular Rate, Rhythm Neurologic/Psychiatric: Alert, Oriented x3 Results/Procedures Lab Laboratory Tests 11/29/22 05:39 Patient resulted labs reviewed. Assessment/Plan Assessment and Plan Assess & Plan/Chief Complaint Assessment: s/p RTKA HTN OOC currently Former smoker Post op anemia Plan: HTN control Pain control IS PT VIVIANE PALMA DO Nov 29, 2022 06:05
[2022-11-29 06:14] LABS: ALBUMIN 3.5 GM/DL (3.2-4.5); POTASSIUM 3.9 MMOL/L (3.6-5.0)
[2022-11-29 06:16] LABS: TOTAL PROTEIN 5.6 GM/DL (6.4-8.2)
[2022-11-29 06:18] LABS: BILIRUBIN,TOTAL 0.6 MG/DL (0.1-1.0)
[2022-11-29 06:20] LABS: CREATININE SERUM 1.04 MG/DL (0.60-1.30)
[2022-11-29] MEDS ORDERED: MULTIVIT W/MINERALS TAB (THERAGRAN M) PO SCH (07:00)
--- NOTE | 2022-11-29 07:38 | Progress Note ---
Standard Progress Note Progress Notes/Assess & Plan Date Seen by a Provider: Nov 29, 2022 Time Seen by a Provider: 07:31 Progress/Assessment & Plan post op check no complaints radiographs--HW well positioned without fracture RLE--2 plus DP pulse with brisk cap refill intact DF and PF of toes and ankle sensation intact to light touch throughout s/p RTKA mobilize as able Final Diagnosis no complaints Laboratory Tests Test 11/29/22 05:39 Range/Units White Blood Count 11.2 H 4.3-11.0 10^3/uL Red Blood Count 3.00 L 4.30-5.52 10^6/uL Hemoglobin 9.4 L 13.3-17.7 g/dL Hematocrit 28 L 40-54 % Mean Corpuscular Volume 94 80-99 fL Mean Corpuscular Hemoglobin 31 25-34 pg Mean Corpuscular Hemoglobin Concent 34 32-36 g/dL Red Cell Distribution Width 12.4 10.0-14.5 % Platelet Count 178 130-400 10^3/uL Mean Platelet Volume 10.5 9.0-12.2 fL Immature Granulocyte % (Auto) 0 % Neutrophils (%) (Auto) 64 42-75 % Lymphocytes (%) (Auto) 19 12-44 % Monocytes (%) (Auto) 13 H 0-12 % Eosinophils (%) (Auto) 3 0-10 % Basophils (%) (Auto) 0 0-10 % Neutrophils # (Auto) 7.1 1.8-7.8 10^3/uL Lymphocytes # (Auto) 2.1 1.0-4.0 10^3/uL Monocytes # (Auto) 1.5 H 0.0-1.0 10^3/uL Eosinophils # (Auto) 0.3 0.0-0.3 10^3/uL Basophils # (Auto) 0.0 0.0-0.1 10^3/uL Immature Granulocyte # (Auto) 0.0 0.0-0.1 10^3/uL Sodium Level 134 L 135-145 MMOL/L Potassium Level 3.9 3.6-5.0 MMOL/L Chloride Level 104 98-107 MMOL/L Carbon Dioxide Level 21 21-32 MMOL/L Anion Gap 9 5-14 MMOL/L Blood Urea Nitrogen 10 7-18 MG/DL Creatinine 1.04 0.60-1.30 MG/DL Estimat Glomerular Filtration Rate 84 BUN/Creatinine Ratio 10 Glucose Level 131 H 70-105 MG/DL Calcium Level 8.0 L 8.5-10.1 MG/DL Corrected Calcium 8.4 L 8.5-10.1 MG/DL Total Bilirubin 0.6 0.1-1.0 MG/DL Aspartate Amino Transf (AST/SGOT) 21 5-34 U/L Alanine Aminotransferase (ALT/SGPT) 16 0-55 U/L Alkaline Phosphatase 57 40-136 U/L Total Protein 5.6 L 6.4-8.2 GM/DL Albumin 3.5 3.2-4.5 GM/DL Vital Signs Date Time Temp Pulse Resp B/P (MAP) Pulse Ox O2 Delivery O2 Flow Rate FiO2 11/29/22 03:04 37.2 102 18 115/78 (90) 93 Room Air 11/28/22 23:25 37.5 103 20 133/81 (98) 93 Room Air 11/28/22 19:44 37.3 97 18 145/82 (103) 96 Room Air 11/28/22 19:35 93 Room Air 11/28/22 16:05 37.8 99 16 123/83 (96) 96 Room Air 11/28/22 15:45 Room Air 11/28/22 12:01 36.6 85 18 180/99 (126) 94 Room Air 11/28/22 10:27 36.6 84 18 181/102 (128) 92 Room Air 11/28/22 10:15 Room Air 11/28/22 10:10 36.7 18 157/96 (116) 96 Room Air 11/28/22 10:00 10 147/111 (123) 97 Room Air 11/28/22 10:00 Room Air 11/28/22 09:50 12 160/104 (122) 100 Face Tent 10 11/28/22 09:45 Face Tent 10 11/28/22 09:40 16 149/102 (118) 100 Face Tent 10 11/28/22 09:30 14 149/103 (118) 100 Face Tent 10 11/28/22 09:30 Face Tent 10 11/28/22 09:20 26 122/51 (74) 100 Face Tent 10 11/28/22 09:16 36.0 24 128/84 (99) 100 Face Tent 10 11/28/22 09:16 Face Tent 10 I & O 11/29/22 07:00 Intake Total 4200 ml Output Total 1100 ml Balance 3100 ml RLE--dressing intact NVI distally no calf tenderness s/p RTKA doing well PT/OT ADONIS PLASCENCIA MD Nov 29, 2022 07:38
[2022-11-29] MEDS: ENOXAPARIN INJECTION 30 MG/0.3 ML SYR SC SCH ×2 (07:41→19:37)
[2022-11-29] MEDS: dilTIAZem120 MG (CARDIZEM CD) CAP PO SCH (08:11)
[2022-11-29] MEDS: amLODIPine 5 MG (NORVASC) TAB PO SCH (08:12)
[2022-11-29] MEDS: MONTELUKAST 10 MG (SINGULAIR) TAB PO SCH (08:12)
[2022-11-29] MEDS: ASPIRIN E.C. 81 MG (ECOTRIN) TAB PO SCH (08:12)
[2022-11-29] MEDS: SENNA W/DOCUSATE (SENOKOT S) TABLET PO SCH ×2 (08:12→19:37)
[2022-11-29] MEDS: lisINopril 10 MG (PRINIVIL) TABLET PO SCH (08:12)
[2022-11-29 08:16] VITALS: BP 128/80
[2022-11-29] MEDS: NS IV 1000 ML 1,000 ML IV SCH ×2 (09:23→11:34)
--- NOTE | 2022-11-29 09:34 | Anesthesia-General Post-Op ---
General Patient Condition Mental Status/LOC: Same as Preop Cardiovascular: Satisfactory Nausea/Vomiting: Absent Respiratory: Satisfactory Pain: Controlled Complications: Absent Post Op Complications Complications None Follow Up Care/Instructions Patient Instructions None needed. Anesthesia/Patient Condition Patient Condition Patient is doing well, no complaints, stable vital signs, no apparent adverse anesthesia problems. No complications reported per nursing. D/C home per [facility] Criteria: Yes JILLIAN LEMUS CRNA Nov 29, 2022 09:34
--- NOTE | 2022-11-29 10:02 | Physical Therapy Daily Note ---
PT Daily Note-Current Subjective Patient is very agreeable to participate with PT. Pain Numeric Pain Scale: 5-Moderate Pain Location: Right Location Body Site: Knee Pain Description: Acute Section J - Health Conditions 1. Rarely or not at all 2. Occasionally 3. Frequently 4. Almost constantly 8. Unable to answer Pain Effect on Sleep: 1 Pain Interference with Therapy: 1 Pain Interference w/Day-to-Day: 1 Mental Status Patient Orientation: Normal For Age Attachments: IV Transfers SCALE: Activities may be completed with or without assistive devices. 8-Vzkoakzqec-lmfvmgt completes the activity by him/herself with no assistance from a helper. 5-Set-up or Clean-up Assistance-helper sets up or cleans up; patient completes activity. [place] assists only prior to or following the activity. 4-Supervision or Touching Assistance-helper provides verbal cues and/or touching/steadying and/or contact guard assistance as patient completes activity. Assistance may be provided throughout the activity or intermittently. 3-Partial/Moderate Assistance-helper does LESS THAN HALF the effort. [place] lifts, holds or supports trunk or limbs, but provides less than half the effort. 2-Substantial/Maximal Assistance-helper does MORE THAN HALF the effort. [place] lifts or holds trunk or limbs and provides more than half the effort. 9-Jhoftalct-mpgaqv does ALL the effort. Patient does none of the effort to complete the activity. Or, the assistance of 2 or more helpers is required for the patient to complete the activity. If activity was not attempted, code reason: 7-Patient Refused. 9-Not Applicable-not attempted and the patient did not perform the activity before the current illness, exacerbation or injury. 10-Not Attempted due to Environmental Limitations-(lack of equipment, weather restraints, etc.). 88-Not Attempted due to Medical Conditions or Safety Concerns. Lying to Sitting/Side of Bed(Q: 6 Sit to Stand (QC): 5 Chair/Wuv-ok-Tmchl Xfer(QC): 5 Gait Training Distance: 300' Walk 10 feet (QC): 5 Walk 50 ft with 2 Turns(QC): 5 Walk 150 ft (QC): 5 Gait Assistive Device: FWW safe and functional/slightly antalgic Exercises Supine Ex: Ankle pumps, Quad Set, Heel Slides, Straight leg raise Supine Reps: 15 Seated Therapy Exercises: Long arc quads Seated Reps: 15 Assessment Patient progressing with treatment plan and is up in recliner with needs met. PT to increase activity as tolerated by patient. PT [facility] Goals Nursing Care Attendant Goals PT Nursing Care Attendant Goals Time Frame: Dec 05, 2022 Roll Left & Right (QC): 6 Sit to Lying (QC): 6 Lying-Sitting on Side/Bed(QC): 6 Sit to Stand (QC): 6 Chair/Mge-bp-Mmezs Xfer(QC): 6 Walk 10 feet (QC): 6 Walk 50ft with 2 Turns (QC): 6 Walk 150 ft (QC): 6 1 Step (curb) (QC): 4 4 Steps (QC): 4 PT Plan Treatment/Plan Treatment Plan: Continue Plan of Care Treatment Plan: Bed Mobility, Education, Functional Activity Eran, Functional Strength, Gait, Safety, Therapeutic Exercise, Transfers Treatment Duration: Dec 05, 2022 Frequency: 11 times per week Estimated Hrs Per Day: .25 hour per day Patient and/or Family Agrees t: Yes Time Time In: 720 Time Out: 743 DATE: Nov 29, 2022 Total Billed Treatment Time: 23 Total Billed Treatment 1 visit GT 9 min EX 14 min BALTA DICKSON PT Nov 29, 2022 10:02
[2022-11-29 11:26] VITALS: BP 128/78
--- NOTE | 2022-11-29 13:46 | Physical Therapy Daily Note ---
PT Daily Note-Current Subjective Patient agrees to PT. Pain Numeric Pain Scale: 5-Moderate Pain Location: Right Location Body Site: Knee Pain Description: Acute Section J - Health Conditions 1. Rarely or not at all 2. Occasionally 3. Frequently 4. Almost constantly 8. Unable to answer Pain Effect on Sleep: 1 Pain Interference with Therapy: 1 Pain Interference w/Day-to-Day: 1 Mental Status Patient Orientation: Normal For Age Attachments: IV Transfers SCALE: Activities may be completed with or without assistive devices. 9-Wksdukpgxd-ihmwhhe completes the activity by him/herself with no assistance from a helper. 5-Set-up or Clean-up Assistance-helper sets up or cleans up; patient completes activity. [place] assists only prior to or following the activity. 4-Supervision or Touching Assistance-helper provides verbal cues and/or touching/steadying and/or contact guard assistance as patient completes activity. Assistance may be provided throughout the activity or intermittently. 3-Partial/Moderate Assistance-helper does LESS THAN HALF the effort. [place] lifts, holds or supports trunk or limbs, but provides less than half the effort. 2-Substantial/Maximal Assistance-helper does MORE THAN HALF the effort. [place] lifts or holds trunk or limbs and provides more than half the effort. 4-Wiceokmhr-sbktxh does ALL the effort. Patient does none of the effort to complete the activity. Or, the assistance of 2 or more helpers is required for the patient to complete the activity. If activity was not attempted, code reason: 7-Patient Refused. 9-Not Applicable-not attempted and the patient did not perform the activity before the current illness, exacerbation or injury. 10-Not Attempted due to Environmental Limitations-(lack of equipment, weather restraints, etc.). 88-Not Attempted due to Medical Conditions or Safety Concerns. Lying to Sitting/Side of Bed(Q: 6 Sit to Stand (QC): 6 Chair/Fkn-ad-Rcykq Xfer(QC): 6 Gait Training Distance: 400' Walk 10 feet (QC): 6 Walk 50 ft with 2 Turns(QC): 6 Walk 150 ft (QC): 6 Gait Assistive Device: FWW steady, reciprocal pattern Exercises Supine Ex: Ankle pumps, Quad Set, Heel Slides, Straight leg raise Supine Reps: 15 Seated Therapy Exercises: Long arc quads Seated Reps: 15 Assessment Patient progressing with treatment plan and will dismiss to home tomorrow with family. PT Court Attendant Goals Court Attendant Goals PT Senior Living Goals Time Frame: Dec 05, 2022 Roll Left & Right (QC): 6 Sit to Lying (QC): 6 Lying-Sitting on Side/Bed(QC): 6 Sit to Stand (QC): 6 Chair/Lbf-dq-Bvrbl Xfer(QC): 6 Walk 10 feet (QC): 6 Walk 50ft with 2 Turns (QC): 6 Walk 150 ft (QC): 6 1 Step (curb) (QC): 4 4 Steps (QC): 4 PT Plan Treatment/Plan Treatment Plan: Continue Plan of Care Treatment Plan: Bed Mobility, Education, Functional Activity Eran, Functional Strength, Gait, Safety, Therapeutic Exercise, Transfers Treatment Duration: Dec 05, 2022 Frequency: 11 times per week Estimated Hrs Per Day: .25 hour per day Patient and/or Family Agrees t: Yes Time Time In: 1245 Time Out: 1303 DATE: Nov 29, 2022 Total Billed Treatment Time: 18 Total Billed Treatment 1 visit FA 18 min BALTA DICKSON PT Nov 29, 2022 13:46
--- NOTE | 2022-11-29 13:49 | Occupational Therapy Eval ---
OT Evaluation-General/PLF Medical Diagnosis Admission Date Nov 28, 2022 at 05:50 Medical Diagnosis: right TKA Onset Date: Nov 28, 2022 Therapy Diagnosis Therapy Diagnosis: weakness Height/Weight Height (Feet): 5 Height (Inches): 8.00 Weight (Pounds): 156 Precautions Precautions/Isolations: Fall Prevention, Standard Precautions Weight Bear Status Weight Bearing Restriction: Weight Bearing/Tolerated Location Restriction: R LE Referral Physician: Carlin Referral Reason: Self Care, Evaluation/Treatment Medical History Pertinent Medical History: HTN Current History RTKA Reviewed History: Yes Social History Home: Single Level Current Living Status: Spouse Entry Into Home: Stairs With Railing Steps Into Home: 4 ADL-Prior Level of Function SCALE: Activities may be completed with or without assistive devices. 9-Wkhveaporp-jzhiwwt completes the activity by him/herself with no assistance from a helper. 5-Set-up or Clean-up Assistance-helper sets up or cleans up; patient completes activity. [place] assists only prior to or following the activity. 4-Supervision or Touching Assistance-helper provides verbal cues and/or touching/steadying and/or contact guard assistance as patient completes activity. Assistance may be provided throughout the activity or intermittently. 3-Partial/Moderate Assistance-helper does LESS THAN HALF the effort. [place] lif ts, holds or supports trunk or limbs, but provides less than half the effort. 2-Substantial/Maximal Assistance-helper does MORE THAN HALF the effort. [place] lifts or holds trunk or limbs and provides more than half the effort. 3-Inzojlkfi-kemest does ALL the effort. Patient does none of the effort to complete the activity. Or, the assistance of 2 or more helpers is required for the patient to complete the activity. If activity was not attempted, code reason: 7-Patient Refused. 9-Not Applicable-not attempted and the patient did not perform the activity before the current illness, exacerbation or injury. 10-Not Attempted due to Environmental Limitations-(lack of equipment, weather restraints, etc.). 88-Not Attempted due to Medical Conditions or Safety Concerns. Self Care: Independent Functional Cognition: Independent Drive Self: Yes OT Current Status Subjective Resting comfortably w/ spouse in room Mental Status/Objective Patient Orientation: Person, Place, Time, Situation Attachments: SCD's Current Upper Extremity ROM BUE ROM/Strength WFLS ADL-Treatment ADL-Current LB dressing w/o dressing tools, FWW to stand Eating (QC): 6 Oral Hygiene (QC): 6 Shower/Bathe Self (QC): 4 Upper Body Dressing (QC): 6 Lower Body Dressing (QC): 5 On/Off Footwear (QC): 5 Toileting Hygiene (QC): 6 Education OT Patient Education: Correct positioning, Disease process, Modified ADL techniques, Progress toward Goal/Update tx plan, Purpose of tx/functional activities, Reviewed precautions, Rehab process, Safety issues, Transfer techniques, Use of adapted equipment Teaching Recipient: Patient, Family Teaching Methods: Demonstration, Discussion Response to Teaching: Verbalize Understanding, Return Demonstration OT Nursing Home Goals Nursing Home Goals Time Frame: Nov 29, 2022 Eating (QC): 6 Oral Hygiene (QC): 6 Toileting Hygiene (QC): 6 Shower/Bathe Self (QC): 4 Upper Body Dressing (QC): 6 Lower Body Dressing (QC): 6 On/Off Footwear (QC): 6 LTG met [facility] following ADL instruction intervention, spouse will assist with bathing as needed Additional Goals: 1-Demonstrate ADL Tasks, 2-Verbalize Understanding 1=Demonstrate adherence to instructed precautions during ADL tasks. 2=Patient will verbalize/demonstrate understanding of assistive devic es/modifications for ADL. 3=Patient will improve strength/tolerance for activity to enable patient to perform ADL's. OT Education/Plan Problem List/Assessment Assessment: No Skilled OT Needs ID'd, Impaired Self-Care Skills Discharge Recommendations Plan/Recommendations: Discharge/Goals Met Therapy Discharge Recommendati: Home & Family Treatment Plan/Plan of Care Treatment,Training & Education: Yes Patient would benefit from OT for education, treatment and training to promote independence in ADL's, mobility, safety and/or upper extremity function for ADL's. Plan of Care: ADL Retraining Treatment Duration: Nov 29, 2022 Frequency: 1 time per week Estimated Hrs Per Day: .25 hour per day Agreement: Yes Rehab Potential: Good OT goals met, discharge from OT, pt spouse will assist with bathing as needed Time Start Time: 09:20 Stop Time: 09:42 DATE: Nov 29, 2022 Total Time Billed (hr/min): 22 Billed Treatment Time 1 visit EV 1 22 min JOSH BLAIR OT Nov 29, 2022 13:49
[2022-11-29 15:27] VITALS: BP 143/81
--- NOTE | 2022-11-29 16:34 | DISCHARGE SUMMARY ---
DATE OF DISCHARGE: 11/30/2022. DISCHARGE DIAGNOSIS: 1. Right knee osteoarthritis. 2. Migraines. 3. Hypertension. 4. Reactive airway disease. PROCEDURE: Right total knee arthroplasty. SUMMARY: The patient is a 57-year-old gentleman who underwent right total knee arthroplasty on date of admission. Postoperatively, did well. At the time of discharge, his wound was clean and dry and no calf tenderness. Negative Homans sign. He was tolerating his diet well and tolerating pain with oral pain medication. CONDITION AT DISCHARGE: Good. DISCHARGE DIET: Regular. Followup is in 3 weeks. ACTIVITIES: Weightbearing as tolerated with a walker. DISCHARGE MEDICATIONS: Home medications. One aspirin per day for 30 days, Percocet as needed for pain. Home physical therapy will be arranged. Job ID: [id number] DocumentID: [id number] Dictated Date: 11/29/2022 07:39:47 Sewing Trimmer Date: 11/29/2022 16:32:00 Dictated By: ADONIS PLASCENCIA MD
[2022-11-29 19:24] VITALS: BP 151/78
[2022-11-29 23:15] VITALS: BP 120/70
[2022-11-30] MEDS: NS IV 1000 ML 1,000 ML IV SCH (00:15)
[2022-11-30] MEDS: oxyCODONE/APAP 5/325MG (PERCOCET 5) TABLET PO PRN ×3 (02:39→07:47)
[2022-11-30 03:18] VITALS: BP 158/80
[2022-11-30 06:27] LABS: BASOPHILS # (AUTO) 0.1 10^3/uL (0.0-0.1); BASOPHILS % (AUTO) 0 % (0-10); EOSINOPHILS # (AUTO) 0.2 10^3/uL (0.0-0.3); EOSINOPHILS % (AUTO) 1 % (0-10); HEMATOCRIT 25 % (40-54); HEMOGLOBIN 8.3 g/dL (13.3-17.7); LYMPHOCYTES # (AUTO) 1.1 10^3/uL (1.0-4.0); LYMPHOCYTES % (AUTO) 8 % (12-44); MEAN CORPUSCULAR HEMOGLOBIN 32 pg (25-34); MEAN CORPUSCULAR HGB CONC 34 g/dL (32-36); MEAN CORPUSCULAR VOLUME 94 fL (80-99); MEAN PLATELET VOLUME 11.8 fL (9.0-12.2); MONOCYTES # (AUTO) 1.9 10^3/uL (0.0-1.0); MONOCYTES % (AUTO) 14 % (0-12); NEUTROPHILS % (AUTO) 75 % (42-75); PLATELET COUNT 167 10^3/uL (130-400); WHITE BLOOD COUNT 13.3 10^3/uL (4.3-11.0)
[2022-11-30 06:43] LABS: ALBUMIN 3.5 GM/DL (3.2-4.5); POTASSIUM 3.8 MMOL/L (3.6-5.0)
[2022-11-30 06:44] LABS: CALCIUM 8.6 MG/DL (8.5-10.1)
[2022-11-30 06:45] LABS: TOTAL PROTEIN 5.8 GM/DL (6.4-8.2)
[2022-11-30 06:47] LABS: BILIRUBIN,TOTAL 0.6 MG/DL (0.1-1.0)
[2022-11-30 06:49] LABS: CREATININE SERUM 0.83 MG/DL (0.60-1.30)
[2022-11-30] MEDS ORDERED: morphine INJ 4 MG/ML 1 ML (VIAL/SYRINGE) IVP PRN (07:00)
--- NOTE | 2022-11-30 07:02 | Progress Note ---
Standard Progress Note Progress Notes/Assess & Plan Date Seen by a Provider: Nov 30, 2022 Time Seen by a Provider: 06:54 Progress/Assessment & Plan post op check no complaints radiographs--HW well positioned without fracture RLE--2 plus DP pulse with brisk cap refill intact DF and PF of toes and ankle sensation intact to light touch throughout s/p RTKA mobilize as able Final Diagnosis no complaints Vital Signs Date Time Temp Pulse Resp B/P (MAP) Pulse Ox O2 Delivery O2 Flow Rate FiO2 11/30/22 05:55 18 11/30/22 03:18 37.6 106 16 158/80 (106) 95 Nasal Cannula 11/29/22 23:15 37.2 109 16 120/70 (87) 92 Room Air 11/29/22 20:00 Room Air 11/29/22 19:24 37.8 106 18 151/78 (102) 93 Room Air 11/29/22 18:32 18 11/29/22 15:27 37.8 106 18 143/81 (101) 92 Room Air 11/29/22 11:26 37.0 99 18 128/78 (95) 93 Room Air 11/29/22 08:16 37.1 103 17 128/80 (96) 92 Room Air 11/29/22 08:00 93 Room Air I & O 11/30/22 07:00 Intake Total 3100 ml Output Total 1650 ml Balance 1450 ml Laboratory Tests Test 11/30/22 05:35 Range/Units White Blood Count 13.3 H 4.3-11.0 10^3/uL Red Blood Count 2.60 L 4.30-5.52 10^6/uL Hemoglobin 8.3 L 13.3-17.7 g/dL Hematocrit 25 L 40-54 % Mean Corpuscular Volume 94 80-99 fL Mean Corpuscular Hemoglobin 32 25-34 pg Mean Corpuscular Hemoglobin Concent 34 32-36 g/dL Red Cell Distribution Width 12.2 10.0-14.5 % Platelet Count 167 130-400 10^3/uL Mean Platelet Volume 11.8 9.0-12.2 fL Immature Granulocyte % (Auto) 0 % Neutrophils (%) (Auto) 75 42-75 % Lymphocytes (%) (Auto) 8 L 12-44 % Monocytes (%) (Auto) 14 H 0-12 % Eosinophils (%) (Auto) 1 0-10 % Basophils (%) (Auto) 0 0-10 % Neutrophils # (Auto) 10.0 H 1.8-7.8 10^3/uL Lymphocytes # (Auto) 1.1 1.0-4.0 10^3/uL Monocytes # (Auto) 1.9 H 0.0-1.0 10^3/uL Eosinophils # (Auto) 0.2 0.0-0.3 10^3/uL Basophils # (Auto) 0.1 0.0-0.1 10^3/uL Immature Granulocyte # (Auto) 0.1 0.0-0.1 10^3/uL Sodium Level 135 135-145 MMOL/L Potassium Level 3.8 3.6-5.0 MMOL/L Chloride Level 103 98-107 MMOL/L Carbon Dioxide Level 21 21-32 MMOL/L Anion Gap 11 5-14 MMOL/L Blood Urea Nitrogen 5 L 7-18 MG/DL Creatinine 0.83 0.60-1.30 MG/DL Estimat Glomerular Filtration Rate 103 BUN/Creatinine Ratio 6 Glucose Level 93 70-105 MG/DL Calcium Level 8.6 8.5-10.1 MG/DL Corrected Calcium 9.0 8.5-10.1 MG/DL Total Bilirubin 0.6 0.1-1.0 MG/DL Aspartate Amino Transf (AST/SGOT) 20 5-34 U/L Alanine Aminotransferase (ALT/SGPT) 14 0-55 U/L Alkaline Phosphatase 57 40-136 U/L Total Protein 5.8 L 6.4-8.2 GM/DL Albumin 3.5 3.2-4.5 GM/DL RLE--incision clean and dry no calf tenderness neg Reshma's s/p RTKA doing well DC after PT today ADONIS PLASCENCIA MD Nov 30, 2022 07:02
[2022-11-30] MEDS: SENNA W/DOCUSATE (SENOKOT S) TABLET PO SCH (07:47)
[2022-11-30] MEDS: ASPIRIN E.C. 81 MG (ECOTRIN) TAB PO SCH (07:47)
[2022-11-30] MEDS: dilTIAZem120 MG (CARDIZEM CD) CAP PO SCH (07:47)
[2022-11-30] MEDS: MONTELUKAST 10 MG (SINGULAIR) TAB PO SCH (07:47)
[2022-11-30] MEDS: lisINopril 10 MG (PRINIVIL) TABLET PO SCH (07:47)
[2022-11-30] MEDS: amLODIPine 5 MG (NORVASC) TAB PO SCH (07:47)
[2022-11-30] MEDS: ENOXAPARIN INJECTION 30 MG/0.3 ML SYR SC SCH (07:50)
--- NOTE | 2022-11-30 09:29 | Physical Therapy Daily Note ---
PT Daily Note-Current Subjective Patient reports he is ready to go home. Agrees to PT. Pain Numeric Pain Scale: 5-Moderate Pain Location: Right Location Body Site: Knee Pain Description: Acute Section J - Health Conditions 1. Rarely or not at all 2. Occasionally 3. Frequently 4. Almost constantly 8. Unable to answer Pain Effect on Sleep: 1 Pain Interference with Therapy: 1 Pain Interference w/Day-to-Day: 1 Mental Status Patient Orientation: Normal For Age Transfers SCALE: Activities may be completed with or without assistive devices. 9-Yfgjiflntr-ziqmozp completes the activity by him/herself with no assistance from a helper. 5-Set-up or Clean-up Assistance-helper sets up or cleans up; patient completes activity. [place] assists only prior to or following the activity. 4-Supervision or Touching Assistance-helper provides verbal cues and/or touch ing/steadying and/or contact guard assistance as patient completes activity. Assistance may be provided throughout the activity or intermittently. 3-Partial/Moderate Assistance-helper does LESS THAN HALF the effort. [place] lifts, holds or supports trunk or limbs, but provides less than half the effort. 2-Substantial/Maximal Assistance-helper does MORE THAN HALF the effort. [place] lifts or holds trunk or limbs and provides more than half the effort. 0-Wpvipxgiv-kcgxxv does ALL the effort. Patient does none of the effort to complete the activity. Or, the assistance of 2 or more helpers is required for the patient to complete the activity. If activity was not attempted, code reason: 7-Patient Refused. 9-Not Applicable-not attempted and the patient did not perform the activity before the current illness, exacerbation or injury. 10-Not Attempted due to Environmental Limitations-(lack of equipment, weather restraints, etc.). 88-Not Attempted due to Medical Conditions or Safety Concerns. Lying to Sitting/Side of Bed(Q: 6 Sit to Stand (QC): 6 Chair/Sco-ux-Urgyv Xfer(QC): 6 Gait Training Distance: 300' x 2 Walk 10 feet (QC): 6 Walk 50 ft with 2 Turns(QC): 6 Walk 150 ft (QC): 6 Gait Assistive Device: FWW slight right flexed knee posture with ambulation Stair Training Stair Training: Handrails/: 1 handrail, uses walker #of Steps: 4 1 Step (curb) (QC): 4 4 Steps (QC): 4 Exercises Supine Ex: Ankle pumps, Quad Set, Heel Slides, Straight leg raise Supine Reps: 15 Seated Therapy Exercises: Long arc quads Seated Reps: 15 Assessment Patient progressing with treatment plan and has been instructed to continue to perform exercises as issued at preop on HEP. Patient voices understanding. Patient has attained all functional goals. PT Jail Goals Jail Goals PT Jail Goals Time Frame: Dec 05, 2022 Roll Left & Right (QC): 6 Sit to Lying (QC): 6 Lying-Sitting on Side/Bed(QC): 6 Sit to Stand (QC): 6 Chair/Kzi-wb-Fkvgn Xfer(QC): 6 Walk 10 feet (QC): 6 Walk 50ft with 2 Turns (QC): 6 Walk 150 ft (QC): 6 1 Step (curb) (QC): 4 4 Steps (QC): 4 PT Plan Treatment/Plan Treatment Plan: Discontinue PT, goals met Treatment Plan: Bed Mobility, Education, Functional Activity Eran, Functional Strength, Gait, Safety, Therapeutic Exercise, Transfers Treatment Duration: Dec 05, 2022 Frequency: 11 times per week Estimated Hrs Per Day: .25 hour per day Patient and/or Family Agrees t: Yes Time Time In: 742 Time Out: 805 DATE: Nov 30, 2022 Total Billed Treatment Time: 23 Total Billed Treatment 1 visit EX 13 min FA 10 min BALTA DICKSON PT Nov 30, 2022 09:29
== END 2022-11-30 09:05 | disposition home health service (06) | DRG 470 ==
LOC: 4TH 05:50 → SURG 05:51 → 4TH 10:35
PROVIDERS: ADMIT Orthopaedic Surgery; ATTEND Orthopaedic Surgery
PROC: 0SRC0J9 Replacement of Right Knee Joint with Synthetic Substitute, Cemented, Open Approach (ICD-10-PCS; principal; 2022-11-28 07:37)
DX: M17.11 Unilateral primary osteoarthritis, right knee (principal); D62 Acute posthemorrhagic anemia; I10 Essential (primary) hypertension; G43.909 Migraine, unspecified, not intractable, without status migrainosus; Z87.891 Personal history of nicotine dependence; J45.909 Unspecified asthma, uncomplicated
CPT/HCPCS: 36415; 73560; 80053; 85025; 86850; 86900; 86901; 94664

== ENCOUNTER → 2023-01-31 | Outpatient (CLI) | payer BC ==
[~2023-01-31] MED LIST changes: +OXYC1TAB11 PO; +ZINC50TA11 PO
--- NOTE | 2023-01-31 17:39 | Diagnostic Imaging Report ---
INDICATION: Pain EXAMINATION: Right knee 01/31/2023 COMPARISON: 12/13/2021. FINDINGS: 3 views of the knee There is a total knee arthroplasty which appears intact. There is no evidence for loosening. No fractures or dislocations. Soft tissue swelling and joint effusion noted anteriorly. IMPRESSION: Expected postoperative findings. No acute osseous abnormality. Dictated by: Dictated on workstation # [id number]
== END ==
LOC: RAD FS 16:40
DX: M25.561 Pain in right knee (principal)
CPT/HCPCS: 73562